=== PATIENT | female | born 1950 | race Caucasian/White ===

== ENCOUNTER 2016-02-19 17:55 | Inpatient (IN) | payer OTHER, MEDICAID ==
[2016-02-19] MEDS ORDERED: NS 1,000 ML IV ONE ×2 (18:10→18:23)
--- NOTE | 2016-02-19 18:13 | EDPHY ---
H & P Time Seen by Provider: 02/19/16 18:07 HPI/ROS: Chief complaint. Shortness of breath HPI. 65-year-old female presents emergency department with altered mental status, shortness of breath, fast heart rate for the last 2-3 days. She has fever to 104 degrees. She has a productive cough. She has generalized weakness. Denies pain in her chest. No vomiting or diarrhea. No rash. No urinary symptoms. She is about to start chemotherapy for newly diagnosed stage IV breast cancer. She recently has had a right chest port placed ROS Constitutional. Fever and weakness Eyes. no problems with vision ENT. no sore throat, no nasal drainage Cardiovascular. Fast heart rate Respiratory. Short of breath and cough Abdominal. no abdominal pain, no nausea/vomiting, no diarrhea . no problems urinating MS. no calf pain/swelling, no neck/back pain, no joint pain Skin. no rash Lymph. no swollen glands Neuro. Unable to walk secondary to weakness Past Medical/Surgical History: Stage IV left breast cancer Social History: Single, lives alone, nonsmoker, no alcohol Physical Exam: General Appearance: Alert well-developed female moderate distress vital signs show temp 37.9degrees, heart rate 141, initial blood pressure 80/59 Eyes: Pupils equal and round no pallor or injection. ENT, Mouth: Mucous membranes are moist. Respiratory: No retractions. Decreased breath sounds on right. Some rhonchi on the left Cardiovascular: Regular rate and rhythm with tachycardia Gastrointestinal: Abdomen is soft and nontender, no masses, bowel sounds normal. Neurological: Awake and alert, sensory and motor exams grossly normal. Skin: Warm and dry, no rashes. Musculoskeletal: Neck is supple nontender. Extremities symmetrical, full range of motion. Psychiatric: Patient is oriented X 3, there is no agitation. Constitutional: Initial Vital Signs Temperature (C) 37.9 C 02/19/16 18:11 Heart Rate 141 H 02/19/16 18:11 Respiratory Rate 20 02/19/16 18:11 Blood Pressure 80/59 L 02/19/16 18:11 O2 Sat (%) 99 02/19/16 18:11 O2 Delivery Mode Nasal Cannula O2 (L/minute) 3 Allergies/Adverse Reactions: No Known Allergies Allergy (Unverified 02/19/16 18:08) Home Medications: Medication Instructions Recorded Keflex 02/19/16 Klor-Con 02/19/16 Lasix 02/19/16 morphINE 02/19/16 Medical Decision Making - Diagnostics EKG Interpretation: EKG interpreted by me shows sinus tachycardia with decreased voltage. QRS is otherwise normal. No arrhythmia. Rate is 144 Imaging: One-view chest x-ray interpreted by me shows right-sided pleural effusion. Cannot exclude pneumonia CT angiogram of the chest shows bilateral low volume pulmonary emboli. There is also pneumonia. There is evidence of CHF. She has bilateral pleural effusions Procedures: IV normal saline, monitor. 2 L of saline given initially. Sepsis workup is performed ED Course/Re-evaluation: Lactate is elevated. Patient is given IV antibiotics as well as 30 male per kg fluid bolus 6:45 p.m. patient is for blood pressure is about 93/60 Levaquin is ordered after blood cultures. Re-evaluation 7:10 p.m. in the patient's blood pressure is 100/[address] pulmonary angiogram is ordered Consult and discussion with , hospitalist, who agrees to the admission Differential Diagnosis: I considered pneumonia, PE, sepsis. - Data Points Laboratory Results: Laboratory Results 02/19/16 18:05 02/19/16 18:05 02/19/16 02/19/16 02/19/16 18:20 18:12 18:05 WBC 8.92 10^3/uL (3.80-9.50) RBC TNP Hgb 8.8 L g/dL (12.6-16.3) Hct 31.0 L % (35.5-47.5) MCV TNP MCH TNP MCHC TNP RDW TNP Plt Count 541 H 10^3/uL (150-400) MPV 8.9 fL (8.7-11.7) Neut % (Auto) 84.2 H % (39.3-74.2) Lymph % (Auto) 9.9 L % (15.0-45.0) [place] % (Auto) 4.5 % (4.5-13.0) Eos % (Auto) 0.2 L % (0.6-7.6) Baso % (Auto) 0.9 % (0.3-1.7) Nucleat RBC Rel Count 0.0 % (0.0-0.2) Absolute Neuts (auto) 7.51 H 10^3/uL (1.70-6.50) Absolute Lymphs (auto) 0.88 L 10^3/uL (1.00-3.00) Absolute Monos (auto) 0.40 10^3/uL (0.30-0.80) Absolute Eos (auto) 0.02 L 10^3/uL (0.03-0.40) Absolute Basos (auto) 0.08 10^3/uL (0.02-0.10) Absolute Nucleated RBC 0.00 10^3/uL (0-0.01) Immature Gran % 0.3 % (0.0-1.1) Immature Gran # 0.03 10^3/uL (0.00-0.10) Platelet Estimate INCREASED H (ADEQ) Polychromasia 1+ H Hypochromasia 2+ H Microcytic Cells 2+ H Smear Review By Pending PT 21.6 H SEC (12.0-15.0) INR 1.87 H (0.83-1.16) APTT 29.9 SEC (23.0-38.0) VBG Lactic Acid 2.8 H mmol/L (0.7-2.1) Sodium 135 mEq/L (134-144) Potassium 5.2 mEq/L (3.5-5.2) Chloride 103 mEq/L (97-110) Carbon Dioxide 21 L mEq/l (22-31) Anion Gap 11 mEq/L (8-16) BUN 16 mg/dL (7-23) Creatinine 0.6 mg/dL (0.6-1.0) Estimated GFR > 60 Glucose 116 H mg/dL (70-100) Calcium 8.3 L mg/dL (8.5-10.4) Total Bilirubin 0.4 mg/dL (0.1-1.4) Medications Given: Discontinued Medications Sodium Chloride (Ns) 1,000 mls @ 0 mls/hr IV ONCE ONE PRN Reason: Wide Open Stop: 02/19/16 18:11 Last Admin: 02/19/16 18:05 Dose: 1,000 mls Sodium Chloride (Ns) 1,000 mls @ 0 mls/hr IV ONCE ONE PRN Reason: Wide Open Stop: 02/19/16 18:24 Last Admin: 01/06/17 18:40 Dose: 1,000 mls Sodium Chloride (Ns *For Sepsis Order Set Only*) 1,592 ml IV ONCE ONE Stop: 02/19/16 18:51 Last Admin: 02/19/16 19:01 Dose: 1,592 ml Departure - Departure Disposition: [facility] Inpatient Acute Clinical Impression: Elevated lactate Pneumonia Qualifiers: Pneumonia type: due to unspecified organism Laterality: bilateral Lung location : lower lobe of lung Qualifier Code: (J18.9) Pneumonia, unspecified organism Pulmonary embolus Qualifiers: Pulmonary embolism type: other Chronicity: acute Condition: Fair
[2016-02-19 18:20] LABS: % IMMATURE GRANULYOCYTES 0.3 % (0.0-1.1); ABSOLUTE IMMATURE GRANULOCYTES 0.03 10^3/uL (0.00-0.10); ADD DIFF? NO; ADD SCAN? NO; ATYPICAL LYMPHOCYTE FLAG 10 (0-99); HEMOGLOBIN 8.8 g/dL (12.6-16.3); LEFT SHIFT FLG 10 (0-99); LIPEMIA HEMOLYSIS FLAG 70 (0-99); MEAN PLATELET VOLUME 8.9 fL (8.7-11.7); PLATELET CLUMPS FLAG 10 (0-99); PLATELET COUNT 541 10^3/uL (150-400)
--- NOTE | 2016-02-19 18:30 | CPEKG ---
Heart Rate: 144 RR Interval: 417 QRSD Interval: 38 QT Interval: 219 QTC Interval: 339 QRS [place]: 46 T Wave [place]: 156 EKG Severity - ABNORMAL ECG - EKG Impression: JUNCTIONAL TACHYCARDIA EKG Impression: LOW VOLTAGE THROUGHOUT EKG Impression: NONSPECIFIC T ABNORMALITIES, DIFFUSE LEADS Electronically Signed By: Lv Roe 19-Feb-2016 20:37:54
[2016-02-19 18:31] LABS: ANION GAP 11 mEq/L (8-16); CALCIUM 8.3 mg/dL (8.5-10.4); CARBON DIOXIDE 21 mEq/l (22-31); CHLORIDE 103 mEq/L (97-110); CREATININE 0.6 mg/dL (0.6-1.0); GLOMERULAR FILTRATION RATE > 60; GLUCOSE 116 mg/dL (70-100); POTASSIUM 5.2 mEq/L (3.5-5.2); SODIUM 135 mEq/L (134-144)
[2016-02-19 18:40] LABS: BILIRUBIN,TOTAL 0.4 mg/dL (0.1-1.4)
[2016-02-19 18:42] LABS: APTT 29.9 SEC (23.0-38.0); INR 1.87 (0.83-1.16); PROTIME(PATIENT) 21.6 SEC (12.0-15.0)
[2016-02-19] MEDS ORDERED: NS 1,000 ML BAG *FOR SEPSIS ORDER SET ONLY IV ONE (18:50)
--- NOTE | 2016-02-19 18:57 | DX ---
Portable AP Semiupright Chest, 2 Views, at 6:33 p.m. Clinical History: 65-year-old female in the ED with chest pain. Comparison Study: None available. Findings: The patient is rotated to the right. There is a right-sided central venous catheter, which terminates over the central right atrium. Oxygen tubing and telemetry monitoring lead lines are prese nt. The cardiac silhouette may be enlarged, although it is silhouetted by macrolobulated density over lying the left hemidiaphragm, and there is right basilar pleural-parenchymal consolidation. The pulmo nary vasculature is congested with some mild interstitial edema present. There is no pneumothorax. Impression: 1. Rightward rotational change. 2. Bibasilar pleuroparenchymal consolidation with suspected cardiomegaly and congestive heart failure . 3. There is a macrolobulated "opacity" which resides over the left upper quadrant of the abdomen and over the left lung base, of uncertain etiology. Correlation with prior studies would be helpful.
[2016-02-19 19:03] LABS: ADD MORPH? YES
[2016-02-19] MEDS ORDERED: IOPAMIDOL (ISOVUE 370) 100 ML BTL IV ONE (19:17)
[2016-02-19 19:21] LABS: HYPOCHROMIA 2+; MICROCYTES 2+; PLATELET ESTIMATE INCREASED (ADEQ)
[2016-02-19 19:22] LABS: POLYCHROMASIA 1+
[2016-02-19] MEDS ORDERED: ENOXAPARIN 60 MG/0.6 ML SYR SC ONE (20:21)
--- NOTE | 2016-02-19 20:28 | CT ---
Contrast-Enhanced CT Scan of the Chest (CT Pulmonary Artery Angiography) Clinical History: 65-year-old female with stage IV breast cancer and shortness of breath. Rule out PE . Technique: A timing bolus was used. The patient received 85 mL of IV Isovue-370 without complication, and a multidetector helical CT scan was obtained from the base the neck inferiorly to the upper abdo men, with images reformatted at 1.50 and 4/3 mm increments, and reviewed at a variety of window and l evel settings. Multiplanar reconstructions are reviewed on the workstation. The DFOV is 32.2 cm. A do se reduction protocol was used. The patient was unable to lie supine or raise her arms, and she is ro tated to the right. Comparison Study: Chest radiography at 6:33 p.m. Other cross-sectional imaging is not available [email or web address]. Findings: CT Angiography: The main pulmonary artery and the main right and the main left pulmonary arteries are contrast-opacified; however, there is a small filling defect identified in the proximal portion of t he branch seen to the posteromedial right lower lobe (please reference series 5, images 93-98), and s mall-volume clot seen within the proximal branches of the right middle lobe pulmonary artery (series 5, images 95-96). There is also small-volume clot involving the distal portion of the left main pulmo nary artery at the first bifurcation (please reference coronal series 8, images 57-60, and axial seri es 5, images 76-80). There is no interventricular septal bowing, although there is a small amount of reflux into the (IVC) cavoatrial junction. The heart is enlarged. There is minimal atherosclerotic ca lcification involving the distal left main and left anterior descending coronary arteries. The thorac ic aortic contour is normal, with no aneurysm or dissection. There is a normal anatomic arrangement o f the great vessels off of the aortic arch. There is a right IJ central venous catheter MediPort whic h terminates in the proximal right atrium. The visualized upper abdominal aorta is unremarkable. Contrast-Enhanced CT Scan of the Chest: There is a macrolobulated, fungating exophytic left breast ne oplasm with metastatic lymphadenopathy. A sentinel left axillary lymph node on series 5 image 88 branden ures 2.0 x 1.9 cm, and there is a 1.5 x 1.1 cm right axillary lymph node on series 5 image 83. There is a heterogeneously enhancing subcarinal lymph node measuring 4.5 x 3.1 cm, and a 2.2 x 1.6 cm lymp h node anterior to the right mainstem bronchus. There is a 1.2 x 1.5 cm left supraclavicular lymph no de. There is a subcentimeter left internal mammary lymph node on series 5, image 84. There is anasarc a present. There is very limited assessment of the upper abdomen with only the cephalad aspects of th e liver and spleen included, and there are moderate-sized bilateral pleural effusions with diffuse pe ribronchial thickening and peripheral paraseptal lines, suggestive of congestive heart failure. There are some small areas of ground-glass attenuation pneumonitis in the anterior right upper lobe, and t here is compressive atelectasis versus infiltrate in the right and left lower lobes and also some loc alized airspace disease in the inferior lingula. These latter findings could be related to alveolar e alexander and/or multicentric pneumonia. There is no thoracic osseous or lytic abnormality. There is a mil d superior cortical endplate compression deformity seen on series 9, image 65. The glenohumeral joint s are anatomically aligned. There is no sternal lesion or rib lesion appreciated. Impression: 1. Small-volume bilateral pulmonary artery thromboemboli. 2. Cardiomegaly with pulmonary vascular congestion, peripheral interstitial edema and alveolar edema, and moderate-sized bilateral pleural effusions. 3. Areas of ground-glass attenuation and infiltrate could be related to pneumonia and/or alveolar nick ma. 4. Exophytic fungating mass emanating off of the left breast with anasarca and multicentric adenopath y with involvement of axillary, supraclavicular, internal mammary, superior mediastinal, and subcarin al lymph node stations. Results were called to Dr. Lv Roe. A test result has been communicated to a licensed care provider and documented in [employer], 8:14:15 PM , 02/19/2016, [employer] Message ID [id number].
[2016-02-19] MEDS ORDERED: ACETAMINOPHEN 500 MG TAB PO ONE (20:32)
[2016-02-19] MEDS ORDERED: ACETAMINOPHEN 500 MG TAB ONE (20:33)
[2016-02-19 20:40] LABS: ALBUMIN 2.2 g/dL (3.5-5.0); BILIRUBIN,TOTAL 0.4 mg/dL (0.1-1.4); BILIRUBIN-CONJUGATED 0.3 mg/dL (0.0-0.5); BILIRUBIN-UNCONJUGATED 0.1 mg/dL (0.0-1.1); TOTAL PROTEIN 4.8 g/dL (6.3-8.2)
[2016-02-19] MEDS ORDERED: NOREPINEPHRINE BITARTRATE 4 MG in D5W 500 ML IV ONE (21:12)
[2016-02-19] MEDS ORDERED: ONDANSETRON DISINTEGRATING 4 MG TAB PO PRN (22:13)
[2016-02-19] MEDS ORDERED: ONDANSETRON 4 MG/2 ML VIAL IVP PRN (22:13)
[2016-02-19 22:55] LABS: TROPONIN I 0.067 ng/mL (0-0.034)
--- NOTE | 2016-02-20 00:06 | PDGENHP ---
History and Physical - Chief Complaint Acute encephalopathy - History of Present Illness PCP: None HPI: 65-year-old female presents with acute encephalopathy characterized as confusion, altered mentation with associated nonproductive cough, shortness of breath, generalized weakness, documented fever of 104, with onset of symptoms approximately 2-3 days ago and progression thereafter. Patient was hospitalized at [facility] [place] for approximately 10 days where she was evaluated for new fungating mass on her left breast secondary to stage IV breast cancer and she was initiated on antibiotics at that time she was discharged to [facility] on oral Keflex as well as Eliquis, presumably for pulmonary embolism. She reports that she had been engaging in therapy at [facility], and that she has no recollection of the events on the date of this presentation, outside of the symptoms mentioned above. On presentation, her venous lactic acid was 2.8, her systolic blood pressure was in the 80s, septic shock protocol was initiated and she was administered Levophed, IV fluids, levofloxacin. History Information - Allergies/Home Medication List Allergies/Adverse Reactions: No Known Allergies Allergy (Unverified 02/19/16 18:08) Home Medications: Apixaban [Eliquis] 5 mg PO BID 02/19/16 [Last Taken 02/19/16 08:00] Cephalexin [Keflex (*)] 250 mg PO TID 02/19/16 [Last Taken 02/19/16 12:00] Furosemide [Lasix 20 MG (*)] 20 mg PO DAILY 02/19/16 [Last Taken 02/19/16] Potassium Cl [Klor-Con] 10 meq PO DAILY 02/19/16 [Last Taken 02/19/16] morphINE [Roxanol 10 mg/0.5 ml oral soln (*)] 5 mg PO Q3 PRN 02/19/16 [Last Taken 02/19/16 12:00] I have personally reviewed and updated: family history, medical history, social history, surgical history - Past Medical History Additional medical history: Stage IV breast cancer with left-sided fungating mass, intention to treat with chemotherapy through provider at [facility] [place], presumably pulmonary embolism given that she is on Eliquis - Surgical History Additional surgical history: Right port placement - Family History Additional family history: Patient does not report any recent sick family contacts or other family medical history - Social History Smoking Status: Never smoked Alcohol Use: None Drug Use: None Additional social history: Currently requiring assistance with ADLs at [facility], lives in [place], did not have medical care prior to her presentation at [facility] [place] Review of Systems ROS: 10pt was reviewed & negative except for what was stated in HPI & below Constitutional: Reports: fever, weakness Respiratory: Reports: cough, shortness of breath Neurological: Reports: other (Confusion, the poor memory) Physical Exam Temp Pulse Resp BP Pulse Ox 37.4 C 97 24 H 91/57 L 98 02/19/16 21:20 02/19/16 23:45 02/19/16 23:00 02/19/16 23:45 02/19/16 23:45 O2 (L/minute) 2 Constitutional: no apparent distress, not in pain, chronically ill appearing, cachectic Eyes: PERRL, anicteric sclera, EOMI Ears, Nose, Mouth, Throat: moist mucous membranes, hearing normal, ears appear normal, no oral mucosal ulcers Cardiovascular: tachycardia, edema (1+ bilateral lower extremity edema extending all the way up to her abdomen), No systolic murmur, No irregularly irregular Respiratory: rhonchi (Bilaterally on inspiration and expiration), No expiratory wheeze, No bronchial breath sounds Gastrointestinal: normoactive bowel sounds, soft, non-tender abdomen, no palpable masses, other (Soft tissue edema) Skin: other (Soft tissue edema on the abdomen and legs, streaking erythema bilateral lower extremities, large fungating mass on the left chest with minimal surrounding erythema at the base, no erythema around the port site) Neurologic: AAOx3, sensation intact bilaterally, weakness (Motor strength 3/5 bilateral lower extremities secondary to the weight of her legs, motor strength 5/5 bilateral upper extremity) Psychiatric: interacting appropriately, not anxious, not encephalopathic, thought process linear Lab Data & Imaging Review 02/19/16 18:05 02/19/16 18:05 WBC 8.92 10^3/uL (3.80-9.50) 02/19/16 18:05 RBC TNP 02/19/16 18:05 Hgb 8.8 g/dL (12.6-16.3) L 02/19/16 18:05 Hct 31.0 % (35.5-47.5) L 02/19/16 18:05 MCV TNP 02/19/16 18:05 MCH TNP 02/19/16 18:05 MCHC TNP 02/19/16 18:05 RDW TNP 02/19/16 18:05 Plt Count 541 10^3/uL (150-400) H 02/19/16 18:05 MPV 8.9 fL (8.7-11.7) 02/19/16 18:05 Neut % (Auto) 84.2 % (39.3-74.2) H 02/19/16 18:05 Lymph % (Auto) 9.9 % (15.0-45.0) L 02/19/16 18:05 [place] % (Auto) 4.5 % (4.5-13.0) 02/19/16 18:05 Eos % (Auto) 0.2 % (0.6-7.6) L 02/19/16 18:05 Baso % (Auto) 0.9 % (0.3-1.7) 02/19/16 18:05 Nucleat RBC Rel Count 0.0 % (0.0-0.2) 02/19/16 18:05 Absolute Neuts (auto) 7.51 10^3/uL (1.70-6.50) H 02/19/16 18:05 Absolute Lymphs (auto) 0.88 10^3/uL (1.00-3.00) L 02/19/16 18:05 Absolute Monos (auto) 0.40 10^3/uL (0.30-0.80) 02/19/16 18:05 Absolute Eos (auto) 0.02 10^3/uL (0.03-0.40) L 02/19/16 18:05 Absolute Basos (auto) 0.08 10^3/uL (0.02-0.10) 02/19/16 18:05 Absolute Nucleated RBC 0.00 10^3/uL (0-0.01) 02/19/16 18:05 Immature Gran % 0.3 % (0.0-1.1) 02/19/16 18:05 Immature Gran # 0.03 10^3/uL (0.00-0.10) 02/19/16 18:05 Platelet Estimate INCREASED (ADEQ) H 02/19/16 18:05 Polychromasia 1+ H 02/19/16 18:05 Hypochromasia 2+ H 02/19/16 18:05 Microcytic Cells 2+ H 02/19/16 18:05 PT 21.6 SEC (12.0-15.0) H 02/19/16 18:20 INR 1.87 (0.83-1.16) H 02/19/16 18:20 APTT 29.9 SEC (23.0-38.0) 02/19/16 18:20 VBG Lactic Acid 1.8 mmol/L (0.7-2.1) 02/19/16 20:20 Sodium 135 mEq/L (134-144) 02/19/16 18:05 Potassium 5.2 mEq/L (3.5-5.2) 02/19/16 18:05 Chloride 103 mEq/L (97-110) 02/19/16 18:05 Carbon Dioxide 21 mEq/l (22-31) L 02/19/16 18:05 Anion Gap 11 mEq/L (8-16) 02/19/16 18:05 BUN 16 mg/dL (7-23) 02/19/16 18:05 Creatinine 0.6 mg/dL (0.6-1.0) 02/19/16 18:05 Estimated GFR > 60 02/19/16 18:05 Glucose 116 mg/dL (70-100) H 02/19/16 18:05 Calcium 8.3 mg/dL (8.5-10.4) L 02/19/16 18:05 Total Bilirubin 0.4 mg/dL (0.1-1.4) 02/19/16 18:05 Conjugated Bilirubin 0.3 mg/dL (0.0-0.5) 02/19/16 18:05 Unconjugated Bilirubin 0.1 mg/dL (0.0-1.1) 02/19/16 18:05 AST 35 IU/L (14-46) 02/19/16 18:05 ALT 27 IU/L (9-52) 02/19/16 18:05 Alkaline Phosphatase 136 IU/L (38-126) H 02/19/16 18:05 Troponin I 0.067 ng/mL (0-0.034) H 02/19/16 18:05 Total Protein 4.8 g/dL (6.3-8.2) L 02/19/16 18:05 Albumin 2.2 g/dL (3.5-5.0) L 02/19/16 18:05 Visualized and Interpreted imaging results: Yes Interpretation: CT angiogram of the chest demonstrates emboli bilaterally, moderate size effusions bilaterally on the right side in the right upper lobe left-sided left lower lobe, ground-glass opacities the proximal to these effusions, lymphadenopathy with left-sided fungating mass Visualized and Interpreted EKG results: Yes EKG Interpretation: Positive for: other (Sinus tachycardia with low voltage diffusely throughout) Assessment & Plan Assessment: 65-year-old female presents with septic shock secondary to suspected pneumonia in the setting of stage IV breast cancer Plan: 1. Septic shock. Acute, new problem this provider, further workup indicated. Evidenced by fever plus tachycardia plus tachypnea plus clearly identified source of infection notably pneumonia plus evidence of end-organ failure notably lactic acidosis, myocardial ischemia with hypotension and systolic blood pressures in the 70-80 range requiring pressors, although this is secondary to autonomic dysregulation in the setting of infection -continue Levophed -status post weight based IV fluids -give albumin given her serum albumin level is 2.2 and she appears to have malignancy related malnutrition and cachexia -brought in IV antibiotics to include possible skin organisms given her underlying fungating mass as well as possible postobstructive pneumonia -repeat arterial lactic acid level, mixed ScV O2 -get stat echo given diffuse low voltage on EKG and shock physiology, rule out tamponade 2. Pneumonia. Evidenced by bilateral ground-glass opacities, possibly postobstructive in the setting of metastatic breast cancer -will have pulmonary Critical Care review CT tomorrow to assess whether it is felt like the pneumonia is postobstructive versus healthcare associated -possible organisms include MRSA, Pseudomonas, Gram-negative rods given her recent 10 day hospitalization at [facility] [place] -broadened antibiotics to vancomycin and Zosyn -continue on supplemental oxygen 3. Stage IV breast cancer. Visible bilateral lymphadenopathy as well as fungating mass on left breast -patient has follow-up with oncologist at [facility] who appears to be planning palliative chemotherapy with recent port placement, they did not recommend surgery to her -get wound care involvement for fungating mass 4. Pulmonary emboli. Acute, suspect recent diagnosis at [facility] given that she is currently on Eliquis -discussed with Dr. Dela Cruz, she has signed out this patient to me at the end of her shift, she was reported to me that the emergency department has given Lovenox this evening -continue Eliquis tomorrow morning at 10 mg twice daily order outside records from [facility] to determine whether patient has already received the initial loading dose of 10 mg twice daily x7 days, and if so, will reduce dosage to 5 mg twice daily 5. Metabolic acidosis. Acute, secondary to lactic acid, continue IV fluids and repeat arterial lactic acid level Diet. Regular Prophylaxis. High risk, received Lovenox, continue on loading dose of Eliquis Code. Full per patient, Elizabeth Mac is her MPOA Disposition. Anticipated discharge uncertain this time, anticipated length stay is greater than 48 hours warranting inpatient admission status for acute septic shock requiring ICU level care. The patient remains high risk of worsening morbidity and/or mortality, she is critically ill, spent 40 minutes of critical care time at bedside with patient, addressing the issues outlined above.
[2016-02-20 00:27] LABS: BASE EXCESS -4.2 mEq/L (-2.5-2.5); BICARBONATE 19 mEq/L (22-26); MEASURED OXYGEN SATURATION 98 % (92-95); PCO2 30 mmHg (34-38); PO2 94 mmHg (65-75); TCO2 20 mEq/L (23-27)
[2016-02-20] MEDS: VANCOMYCIN 750 MG in D5W 150 ML IV SCH ×2 (00:42→14:06)
[2016-02-20] MEDS: PIPERACILLIN/TAZO 4.5 GM/DEX 100 ML IV SCH ×4 (00:43→18:04)
[2016-02-20] MEDS: NOREPINEPHRINE BITARTRATE 4 MG in D5W 500 ML IV SCH (02:16)
[2016-02-20] MEDS: NS 1,000 ML IV SCH ×2 (02:17→08:51)
[2016-02-20] MEDS ORDERED: ALBUMIN 25% 100 ML SOLN IV ONE ×2 (02:25→13:04)
[2016-02-20 03:55] LABS: % IMMATURE GRANULYOCYTES 0.4 % (0.0-1.1); ABSOLUTE IMMATURE GRANULOCYTES 0.02 10^3/uL (0.00-0.10); ADD DIFF? NO; ADD SCAN? NO; ATYPICAL LYMPHOCYTE FLAG 40 (0-99); HEMATOCRIT 26.2 % (38.0-47.0); HEMOGLOBIN 7.5 g/dL (12.6-16.3); LEFT SHIFT FLG 0 (0-99); LIPEMIA HEMOLYSIS FLAG 70 (0-99); MEAN CELL HEMOGLOBIN 25.5 pg (27.9-34.1); MEAN CELL VOLUME 89.1 fL (81.5-99.8); MEAN PLATELET VOLUME 8.6 fL (8.7-11.7); PLATELET CLUMPS FLAG 10 (0-99); PLATELET COUNT 372 10^3/uL (150-400); RED BLOOD CELL COUNT 2.94 10^6/uL (4.18-5.33)
[2016-02-20 04:01] LABS: MIXED VENOUS O2 SATURATION 60 % (65-75)
[2016-02-20 04:08] LABS: ALANINE AMINOTRANSFERASE 33 IU/L (9-52); ALBUMIN 2.2 g/dL (3.5-5.0); ALKALINE PHOSPHATASE 115 IU/L (38-126); ANION GAP 8 mEq/L (8-16); ASPARTATE AMINOTRANSFERASE 27 IU/L (14-46); BILIRUBIN,TOTAL 0.4 mg/dL (0.1-1.4); CARBON DIOXIDE 22 mEq/l (22-31); CHLORIDE 108 mEq/L (97-110); CREATININE 0.5 mg/dL (0.6-1.0); GLOMERULAR FILTRATION RATE > 60; GLUCOSE 125 mg/dL (70-100); SODIUM 138 mEq/L (134-144); TOTAL PROTEIN 4.5 g/dL (6.3-8.2)
[2016-02-20 04:19] LABS: TROPONIN I 0.046 ng/mL (0-0.034)
[2016-02-20 04:25] LABS: MEAN CELL HEMOGLOBIN CONCENTR. 28.6 g/dL (32.4-36.7)
[2016-02-20 04:26] LABS: ADD MORPH? YES
[2016-02-20 05:21] LABS: HYPOCHROMIA 2+; LARGE PLATELETS PRESENT; MACROCYTES 1+; MICROCYTES 2+; PLATELET ESTIMATE ADEQUATE (ADEQ); POLYCHROMASIA 2+
[2016-02-20 06:19] LABS: COLOR YELLOW; LEUKOCYTE ESTERASE,URINE NEGATIVE (NEGATIVE); NITRITE,URINE NEGATIVE (NEGATIVE)
[2016-02-20 07:38] LABS: MIXED VENOUS O2 SATURATION 83 % (65-75)
[2016-02-20] MEDS ORDERED: APIXABAN 5 MG TAB PO SCH (09:00)
[2016-02-20] MEDS ORDERED: FUROSEMIDE 20 MG/2 ML VIAL ONE (10:37)
[2016-02-20] MEDS ORDERED: FUROSEMIDE 20 MG/2 ML VIAL IVP ONE (11:00)
--- NOTE | 2016-02-20 11:33 | ECHO ---
[id number] + + [address] : : [place] [address] : : [phone] + + Adult Echocardiographic Report + -----+ :Name: Aida DUBOIS Date: 02/20/2016 08:38 AM BP: 94/70 mmHg : : Hospital Admission Number: [id number] Location : 248: :: 1950 Gender: Female Height: 64 in : :Age: 65 yrs Race: WH Weight: 117 lb : :Reason For Study: eval for pericardial effusion, RV strain, : :and reduced EF BSA: 1.6 meters2 : :History: Large left breast tumor; septic shock : + -----+ MMode/2D Measurements & Calculations IVSd: 0.65 cm RVDd: 3.5 cm FS: 14.5 % Ao root diam: 2.7 cm LVPWd: 0.83 cm LVIDd: 5.1 cm EDV(Teich): 122.7 ml LA dimension: 3.8 cm LVIDs: 4.3 cm ESV(Teich): 85.0 ml EF(Teich): 30.7 % Normal Measurement Values: + + :LVIDd (3.5-5.7cm) IVSd (0.6-1.1cm) LVPWd (0.6-1.1cm) Aortic Root (2.0-3.7cm)Left Atrium (1.5-4.0cm): :LV Vol(d) (76-115ml) LV Vol(s) (29-48ml) Ejec Fraction (50-65%)PV Pasha (0.6- 1.2m/s) TV Pasha (0.4-1.0m/s) : :MV E Pasha (0.8-1.0m/s)MV A Pasha (0.3-1.0m/s)LVOT Pasha (0.7-1.2m/s) Asc Ao Pasha ( 0.9-1.8m/s) : + + Doppler Measurements & Calculations PA V2 max: 57.4 cm/sec TR max pasha: 255.2 cm/sec PA max P.3 mmHg TR max P.0 mmHg RAP systole: 15.0 mmHg RVSP(TR): 41.0 mmHg Left Ventricle The left ventricle is borderline dilated. There is normal left ventricular wall thickness. Left ventricular systolic function is moderate to severely reduced. Diastolic Function Indeterminate due to due to no apical window.. Ejection Fraction = 30-35%. Flattened interventricular septum with hypokinesis due to RV strain and/or coronary artery disease. Right Ventricle RV is only visualized in limited views. RV appears to be normal size with mildly reduced systolic function. Atria The left atrial size is normal. Right atrial size is normal. Mitral Valve The mitral valve leaflets appear thickened, but open well. Mitral regurgitation evaluated only in parasternal views; there is moderate to severe MR in theses views. Tricuspid Valve The tricuspid valve is normal in structure and function. There is no tricuspid stenosis. There is moderate to severe tricuspid regurgitation. Right ventricular systolic pressure is 41mmHg. There is Doppler evidence for moderate pulmonary hypertension. Aortic Valve The aortic valve is trileaflet. There is no aortic stenosis. There is no aortic insufficiency. Pulmonic Valve The pulmonic valve is normal in structure and function. Trace pulmonic valvular regurgitation. Great Vessels The aortic root is not well visualized. Pericardium/Pleural trivial pericardial effusion. There is a large pleural effusion. Conclusion A two-dimensional transthoracic echocardiogram with M-mode and Doppler was performed. Techincally limited study due to lack of apical windoows related to presence of a large tumor. The left ventricle is borderline dilated. Left ventricular systolic function is moderately to severely reduced. Ejection Fraction = 30-35%. Flattened interventricular septum with hypokinesis due to RV strain and/or coronary artery disease. Diastolic Function Indeterminate due to due to no apical window. RV is only visualized in limited views. RV appears to be normal size with mildly reduced systolic function. Mitral regurgitation evaluated only in parasternal views; there is moderate to severe MR in theses views. There is moderate to severe tricuspid regurgitation. There is Doppler evidence for moderate pulmonary hypertension. Right ventricular systolic pressure is 41mmHg. Trace pulmonic valvular regurgitation. The aortic root is not well visualized. Trivial pericardial effusion. There is a large pleural effusion. Final Reading Physician: Chino Gannon signed on 02/20/2016 11:32 AM Ordering Physician: Tmiothy Zepeda Performed By: Cindy Lau
--- NOTE | 2016-02-20 11:39 | GCON ---
[f rep st] CONSULTATION REASON FOR ADMISSION: Respiratory failure. The patient is a 65-year-old white female with an extensive past medical history, including stage IV breast cancer with left-sided fungating mass. She was recently diagnosed at [facility] with a pulmonary embolus, for which she is on Eliquis. She presented to the emergency room with incr easing breathlessness as well as confusion. She had fevers up to 104. She currently resides at [facility] [place]. She was subsequently admitted to our intensive care unit. She is somewhat confused but abl e to answer questions. She admits to breathlessness and weakness, but she is not in any current pain . She was markedly hypertensive on presentation and septic shock protocol was instituted. Currently she is tachycardic, remains hypotensive, and is more breathless. PAST MEDICAL HISTORY: Significant for stage IV breast cancer, and a pulmonary embolism. She also ramírez s malnutrition. ALLERGIES: No allergies to medications. MEDICATIONS: Include Eliquis, Keflex, Lasix, Klor-Con, and Roxanol. PHYSICAL EXAM: VITAL SIGNS: Blood pressure is 86/60, pulse is 137, respirations are 28, temperature is 37.8, oxygen saturation is 90% on supplemental oxygen. GENERAL: She is a thin, cachectic, elder ly white female who is in mild respiratory distress. HEENT: Eyes are TAMMI, EOMI. Throat shows no e rythema nor tonsillar hypertrophy. NECK: Supple, there is no cervical adenopathy. HEART: Regular rate and rhythm, with a 2/6 systolic murmur at left sternal border without radiation. LUNGS: Dimini shed breath sounds, bibasilar crackles, right greater the left. ABDOMEN: Soft, nontender. Bowel so unds are present in all 4 quadrants. EXTREMITIES: No clubbing, cyanosis or edema. Her left breast has a large fungating mass. LABORATORIES: White count is 5.3, hemoglobin 7.5, hematocrit 26, platelet count is 372. Sodium is 1 38, potassium 4.0, chloride 108, CO2 of 22, BUN of 14, creatinine 0.5, glucose is 125. Troponin are weakly positive x2. Arterial blood gas, pH is 7.42, pCO2 of 30, pO2 of 94, bicarb 20, oxygen saturat ion is 98%. CT scan of the chest per PE protocol, shows small volume pulmonary emboli, cardiomegaly, infiltrate, and again this left breast fungating mass. RECOMMENDATIONS: 1. Agree with sepsis protocol. 2. IV antibiotics per ID. 3. DVT and PE prophylaxis. 4. Stress ulcer prophylaxis. 5. Agree with do not resuscitate. 6. Consider palliative care. 7. Consider comfort care. 8. Prognosis is grim. /[id number]/MODL
[2016-02-20] MEDS: morphINE 10 MG/0.5 ML UDSYR PO PRN ×4 (12:25→21:59)
--- NOTE | 2016-02-20 12:29 | CPEKG ---
Heart Rate: 143 RR Interval: 420 P-R Interval: 135 QRSD Interval: 60 QT Interval: 255 QTC Interval: 393 P [place]: 0 QRS [place]: 25 T Wave [place]: 67 EKG Severity - BORDERLINE ECG - EKG Impression: SINUS TACHYCARDIA EKG Impression: BORDERLINE T ABNORMALITIES, ANT-LAT LEADS Electronically Signed By: Vinay Swartz 21-Feb-2016 10:50:47
--- NOTE | 2016-02-20 12:31 | DX ---
Portable Chest, Single View February 20, 2016 at 10:47 a.m. Indication: Shortness of breath. Comparison: Portable chest dated February 19, 2016. Findings: Given differences in technique and degree of inspiration, bibasilar consolidation, worse ri ght than left, and bilateral pleural effusions, worse right than left have not significantly changed. The right anterior chest wall port, cardiomegaly, and left chest wall mass are unchanged. Impression: No significant change since one day prior.
[2016-02-20] MEDS ORDERED: ALBUMIN 25% 100 ML IV ONE (13:30)
--- NOTE | 2016-02-20 13:40 | GCON ---
[f rep st] CONSULTATION INFECTIOUS DISEASE CONSULTATION DATE OF CONSULTATION: 02/20/2016 REFERRING PHYSICIAN: Cammie Baez MD REASON FOR CONSULTATION: Left fungating breast cancer mass, for further evaluation and opinion. CHIEF COMPLAINT: Foul-smelling left breast mass. HISTORY OF PRESENTING ILLNESS: This is a 65-year-old, female, with a new diagnosis of stage IV breast cancer with a left-sided fungating mass, which on review of records, was GA positive, ER/HER2 negative, and is supposed to have some outpatient oncology followup. She also was placed on oral Keflex during her hospital stay, and apparently discharged on that for possible superinfection of the left fungating breast mass. She was discharged to [facility] and was brought in here yesterday after fevers and shaking chills. Blood cultures x2 sets were drawn and are pending. T-max here was 38.0, respiratory rate was 28, blood pressure was found 80/59, heart rate was 140. Her venous lactic acid was 2.8 and she is currently on Levophed. She had a CT angio, and found to have ground glass attenuation, possibly related to pneumonia or edema , bilateral pulmonary emboli. She was started empirically on vancomycin and Zosyn. She is tachypneic with speaking sentences. States that she has a cough that feels productive, but she is unable to bring up any phlegm. She denies any chest pain, abdominal pain, or diarrhea. Infectious Disease is now consulted for further evaluation and opinion regarding the above. REVIEW OF SYSTEMS: GENERAL: Denies any headaches. She had fevers and shaking chills on admission. EYES: No change in vision. ENT: No sore throat, difficulty swallowing, ear pain or drainage. CARDIOVASCULAR: Denies any chest pain or rapid heart beat. RESPIRATORY: Has some shortness of breath and a productive cough. GI: No nausea, vomiting, abdominal pain, or diarrhea. : No burning with urination. BACK: No back pain or flank pain. MUSCULOSKELETAL : Denies any joint pains or muscle aches. She does complain of lower extremity edema and upper extremity edema. SKIN: The fungating left breast mass which is foul smelling. Rest of 10-point review of systems essentially negative, except for above. PAST MEDICAL HISTORY: Significant for recent diagnosis of stage IV breast cancer with a left-sided fungating mass, bilateral pulmonary embolism. PAST SURGICAL HISTORY: Significant for recent right port placement. FAMILY HISTORY: No family history of cancer. SOCIAL HISTORY: She is a nonsmoker. Does not drink alcohol. She lives alone with her cat. FAMILY HISTORY: No history of cancer. ALLERGIES: No known drug allergies. MEDICATIONS: As per MAR. PHYSICAL EXAMINATION: VITAL SIGNS: Temperature current is 36.4, pulse is 119, blood pressure 102/69, respiratory rate is 30, saturation 100% on 3 L O2 via nasal cannula. GENERAL: The patient is resting in the intensive care unit. Tachypneic. Was speaking sentences. HEENT: Head is normocephalic, atraumatic. Pupils equal, round, reactive to light. No conjunctival injection or petechiae noted. Oropharynx is clear. No posterior pharyngeal erythema or thrush. CARDIOVASCULAR: S1, S2. Regular rhythm. She is tachycardic. RESPIRATORY: Coarse breath sounds bilaterally. Limited exam as she has poor inspiratory effort. ABDOMEN: Positive bowel sounds in 4 quadrants. Soft, nontender, nondistended. Organomegaly could not be well appreciated. EXTREMITIES: Bilateral lower extremity edema. MUSCULOSKELETAL: No pain on palpation of the joints. SKIN: Pertinent finding show large fungating left breast mass which is very foul smelling. There is minimal, if any, erythema surrounding it. The left breast fungating mass is quite soft and squishy in nature. LABORATORY DATA: White blood cell count 5.3, hemoglobin 7.5, platelets are 372 , neutrophil count of 73%. Coagulation: INR 1.8. Blood gas: Venous lactic acid was 2.8, is down to 1.8. Chemistry: Sodium 138, potassium 4.0, chloride 108, bicarb 22, BUN is 14, creatinine 0.5. LFTs from yesterday were within the normal range. Urinalysis is unremarkable. Blood cultures x2 sets are pending. Imaging results have all been reviewed by me and are stated above. ASSESSMENT: 1. Sepsis secondary to #1, #2 2. Healthcare associated pneumonia. CT scan shows bilateral ground-glass opacities, could be infiltrates related to pneumonia versus edema. Given her recent hospitalization at [facility] from February 05 to February 15, she may be at risk for healthcare-associated pneumonia. Again, I agree with broad- spectrum antimicrobials with vancomycin and Zosyn empirically for now. If she is able to cough up some phlegm, will check sputum for culture and sensitivity as well. Hematology/Oncology to see the patient. Wound Care to evaluate the patient as well. I thank you very much for allowing me this opportunity to care for your patient in consultation. 3. Stage IV left breast cancer with fungating mass, quite foul-smelling. Given the degree of foul-smelling nature to the left breast fungating mass, she may have some component of secondary superinfection. There is minimal, if any, surrounding cellulitic appearance to it. Blood cultures x2 are pending. I reviewed records from [facility]. Her blood cultures from [facility] on the and the 12 of February were no growth to date. She was previously on Keflex and discharged on that. I agree with empiric vancomycin and Zosyn for now. Will await cultures to better direct therapy. Would recommend a Wound Care consultation to further evaluate. We will continue to assess her antibiotic therapy. /[id number]/MODL MTDD
--- NOTE | 2016-02-20 13:50 | GHP ---
[f rep st] HISTORY AND PHYSICAL DATE OF ADMISSION: 02/19/2016 I was asked by Dr. Cammie Baez to evaluate this 65-year-old female with a locally ignored and metastatic breast carcinoma, who presents acutely ill to [facility]. To review, records are somewhat incomplete at this point in time, but my understanding is the patient was recently hospitalized at [facility] for evaluation of a fungating mass in her breast. She was treated with antibiotics and apparently had some imaging studies at that time, which also showed pulmonary emboli, and she was started on Eliquis. She was discharged to a assisted facility with the idea of starting chemotherapy when she was stronger, but she became acutely confused with altered mentation and presented to [facility] where she was found to be hypotensive, with an elevated venous lactate and systolic blood pressure in the 80s. She was treated with IV fluid resuscitation, pressors, and antibiotics. Currently, she is alert, but appears quite thin and quite pale. She tells me she has been losing weight, some of it because of weakness and inability to obtain food. She has noted the breast mass for over a year. To the best of her knowledge, her cancer is ER/MI negative. The HER-2 status is unclear. We are attempting to obtain records from [facility]. Her primary oncologist there is Dr. Irwin Zavala. PAST MEDICAL HISTORY: Otherwise unremarkable. She has had a recent right port placement. She is a nonsmoker. Prior to her presentation a few weeks ago, she has not had any medical care for quite some time. REVIEW OF SYSTEMS: She denies pain. She is quite weak. She has a cough. PHYSICAL EXAMINATION: VITAL SIGNS: Today, blood pressure 92/69, pulse 141, respiratory rate 30. O2 saturation 98% on 3 L. GENERAL: She is quite cachectic. LYMPHATIC: I detect no adenopathy. LUNGS: Diminished breath sounds. CARDIAC: She is tachycardic, with a regular rhythm. BREASTS: Left breast is replaced essentially by a fungating mass. ABDOMEN: Normal bowel sounds, without obvious organomegaly. LABORATORY DATA: Her chemistry panel shows unremarkable liver function tests. WBC is 5.31, hemoglobin 7.5, hematocrit 26.2, platelets 372,000. A CT scan on admission shows small volume pulmonary emboli, cardiomegaly with vascular congestion, peripheral interstitial edema and alveolar edema and moderate-sized bilateral pleural effusions. There are areas of ground-glass attenuation infiltrate related either to pneumonia or alveolar edema. There is an exophytic, fungating mass emanating off the left breast with anasarca and multicentric adenopathy with involvement of axillary, supraclavicular, internal mammary, superior mediastinal, and subcarinal lymph node stations. The subcarinal lymph node measures 4.5 x 3.1 cm. IMPRESSION: Patient with metastatic breast carcinoma. Current staging, although incomplete, would indicate significant mary disease and a locally advanced left breast cancer. It is unclear whether she has pulmonary metastasis. There is no obvious mention of liver metastasis or sclerotic bony metastasis on her imaging studies. She is quite ill. Potential sources of infection would include her lungs and/or left breast. She is being treated appropriately. I discussed her situation at length with the patient and with her consulting physicians. This is a very serious situation and she already has an incurable breast cancer. She has agreed to be DNR. I think the prognosis is quite tenuous, and she might best be served by palliative care, but this is a very recent diagnosis, and I think she is at least for now unprepared to consider that, as she was previously told that there was some hope for palliative chemotherapy in this setting. We will continue to follow with you and appreciate the opportunity to see this patient in consultation. /[id number]/MODL MTDD
[2016-02-20] MEDS: ACETAMINOPHEN 325 MG TAB PO PRN (15:06)
--- NOTE | 2016-02-20 17:19 | HOSPPROG ---
Hospitalist Progress Note Assessment/Plan: Septic shock secondary to b/l PNA with suspected malignant effusions vs skin source. Port looks clear - Cont Vanc/Zosyn, weaning Levophed. ID to consult. Left fungating breast cancer - stage IV by prior biopsy. Obtaining path, imaging, onc, surg reports from [facility]. -Oncology consult -poor prognosis, may need palliative care consult, pt not quite ready Anemia - hgb trending down to 7.5, transfuse if <7. Tachycardia - sinus tac by EKG. Query sepsis response. No PE on CTA. She has received volume resuscitation and prn Albumin Acute encephalopathy - likely secondary to sepsis presentation, now resolved. Severe protein calorie malnutrition - dietary consult. Code - discussed code status with patient today and she changed to DNR, order updated Dispo - cont ICU Subjective: Pt continues to feel short of breath. Still coughing. No fevers. denies pain. poor appetite. Objective: Vital Signs Temp Pulse Resp BP Pulse Ox 37.4 C 112 H 24 H 91/57 L 100 02/20/16 16:17 02/20/16 17:01 02/20/16 17:01 02/20/16 17:01 02/20/16 17:01 Laboratory Results 02/20/16 03:45 02/20/16 03:45 02/19/16 02/20/16 02/21/16 05:59 05:59 05:59 Intake Total 3124 Output Total 300 1100 Balance 2824 -1100 PT 21.6 SEC (12.0-15.0) H 02/19/16 18:20 INR 1.87 (0.83-1.16) H 02/19/16 18:20 - Physical Exam Constitutional: chronically ill appearing Eyes: PERRL Ears, Nose, Mouth, Throat: moist mucous membranes Cardiovascular: regular rate and rhythym Respiratory: reduced air movement, inspiratory crackles Gastrointestinal: normoactive bowel sounds, soft, non-tender abdomen Skin: other (pale) Neurologic: AAOx3 Psychiatric: interacting appropriately ICD10 Worksheet Patient Problems: Problems Problem Status Diagnosed Pneumonia Acute Pulmonary embolus Acute
[2016-02-20] MEDS: APIXABAN 5 MG TAB PO SCH (21:46)
[2016-02-20] MEDS ORDERED: ALBUMIN 25% 100 ML IV SCH (22:18)
[2016-02-21] MEDS: PIPERACILLIN/TAZO 4.5 GM/DEX 100 ML IV SCH ×5 (00:33→23:50)
[2016-02-21] MEDS: NOREPINEPHRINE BITARTRATE 4 MG in D5W 500 ML IV SCH ×3 (00:36→20:00)
[2016-02-21] MEDS: VANCOMYCIN 750 MG in D5W 150 ML IV SCH ×2 (00:45→14:07)
[2016-02-21] MEDS: morphINE 10 MG/0.5 ML UDSYR PO PRN ×7 (01:20→23:52)
[2016-02-21 05:10] LABS: ANION GAP 9 mEq/L (8-16); CALCIUM 8.2 mg/dL (8.5-10.4); CARBON DIOXIDE 20 mEq/l (22-31); CHLORIDE 105 mEq/L (97-110); CREATININE 0.5 mg/dL (0.6-1.0); GLOMERULAR FILTRATION RATE > 60; GLUCOSE 129 mg/dL (70-100); POTASSIUM 3.9 mEq/L (3.5-5.2); SODIUM 134 mEq/L (134-144)
[2016-02-21 06:24] LABS: % IMMATURE GRANULYOCYTES 0.6 % (0.0-1.1); ABSOLUTE IMMATURE GRANULOCYTES 0.04 10^3/uL (0.00-0.10); ABSOLUTE NRBC COUNT 0.02 10^3/uL (0-0.01); ADD DIFF? NO; HEMATOCRIT 24.6 % (38.0-47.0); HEMOGLOBIN 7.4 g/dL (12.6-16.3); MEAN CELL HEMOGLOBIN 25.7 pg (27.9-34.1); MEAN CELL HEMOGLOBIN CONCENTR. 30.1 g/dL (32.4-36.7); MEAN CELL VOLUME 85.4 fL (81.5-99.8); MEAN PLATELET VOLUME 8.6 fL (8.7-11.7); NRBC-AUTO% 0.3 % (0.0-0.2); PLATELET COUNT 390 10^3/uL (150-400); RED BLOOD CELL COUNT 2.88 10^6/uL (4.18-5.33)
[2016-02-21 06:41] LABS: ADD MORPH? YES
[2016-02-21 07:44] LABS: MACROCYTES 1+; MICROCYTES 2+
[2016-02-21 07:45] LABS: ELLIPTOCYTES 1+; HYPOCHROMIA 1+
[2016-02-21 07:46] LABS: KERATOCYTES 1+
[2016-02-21 07:47] LABS: GIANT PLATELETS PRESENT; LARGE PLATELETS PRESENT; PLATELET ESTIMATE ADEQUATE (ADEQ); POLYCHROMASIA 1+
--- NOTE | 2016-02-21 08:08 | PCMIDPN ---
Assessment/Plan: Assessment/Plan: 1. Sepsis 2. Bilateral pulm infiltrates: Possible HCAP -Currently on broad spectrum antibiotics with Vanco, zosyn. -Still requiring levophed. Still tachycardic. -Check Sputum if able 3. Stage IV left breast cancer with fungating mass: -Will do wound cx to help better direct antibiotic coverage. - Await blood cx--thus far pending -Continue vanco, zosyn. Current vanco trough done after only one dose. Will recheck. -Await wound care evaluation and assistance -care coordinated with Rn. Curran Vanco 750mg q12-02/20/16--- zosyn 4.5gm q6-02/20/16---- Subjective: Remains in icu. Bala fevers yesterday, intermittent low grade temps. Breathing easier today. Less tachypnea with speaking. Still remains tachycardic but less so. denies pain. Unable to cough up the phlegm although she has phlegm. Recieved lasix yesterday. LE still swollen bilaterally. Appetite overall down, but trying to eat. Dressing changes to left breast, about eery 3 hours at present. Still foul smelling. Remains on levophed. Objective: Vital Signs Temp Pulse Resp BP Pulse Ox 37.4 C 104 H 28 H 95/61 L 99 02/21/16 05:00 02/21/16 07:00 02/21/16 07:00 02/21/16 07:00 02/21/16 07:00 Laboratory Results 02/21/16 04:40 02/21/16 04:40 02/20/16 02/21/16 02/22/16 05:59 05:59 05:59 Intake Total 3124 2555 Output Total 300 1100 Balance 2824 1455 - Physical Exam General Appearance: alert, no apparent distress Respiratory: coarse breath sounds (mild bilaterally) Cardiac/Chest: tachycardia Extremities: swelling (bilateral LE edema, pitting. ) Abdomen: normal bowel sounds, non-tender, soft, No distended Skin: other (left breast fungating mass: with slough, weepy. no surrounding cellulitis. foul smelling. ) ICD10 Worksheet Patient Problems: Problems Problem Status Diagnosed Pneumonia Acute Pulmonary embolus Acute
[2016-02-21] MEDS ORDERED: ALTEPLASE 2 MG VIAL IVP PRN (08:50)
[2016-02-21] MEDS: APIXABAN 5 MG TAB PO SCH ×2 (09:31→20:00)
--- NOTE | 2016-02-21 11:41 | PDINTPN ---
Property Preservation Specialist Progress Note Assessment/Plan: Assessment/Plan: * Stage IV breast cancer with large fungating left breast mass * Sepsis-improved * Pneumonia-on vanco/Zosyn * PE-on Eliquis * Resp-stable on minimal O2 -wean as jose miguel * VTE proph * Nutrition-better appetite * Pain-tolerable * IV Access-currently using port -Place PICC Overall much better Subjective: Feels better. Breathing easier. Less cough. Better appetite Objective: Vital Signs Temp Pulse Resp BP Pulse Ox 36.7 C 121 H 25 H 105/66 100 02/21/16 08:00 02/21/16 11:00 02/21/16 11:00 02/21/16 11:00 02/21/16 11:00 Laboratory Results 02/21/16 04:40 02/21/16 04:40 02/20/16 02/21/16 02/22/16 05:59 05:59 05:59 Intake Total 3124 2555 Output Total 300 1100 Balance 2824 1455 PT 21.6 SEC (12.0-15.0) H 02/19/16 18:20 INR 1.87 (0.83-1.16) H 02/19/16 18:20 Physical Exam - Physical Exam General Appearance: alert, no apparent distress EENT: PERRL/EOMI, normal ENT inspection Neck: non-tender, full range of motion, supple, normal inspection Respiratory: crackles (few), No normal breath sounds, No respiratory distress, No stridor, No wheezing Cardiac/Chest: normal peripheral pulses, regular rate, rhythm, systolic murmur Peripheral Pulses: 2+: carotid (R), carotid (L), femoral (R), femoral (L), dorsalis-pedis (R), dorsalis-pedis (L) Abdomen: normal bowel sounds, non-tender, soft Pelvic Exam: deferred Rectal: deferred Skin: normal color, warm/dry Extremities: normal range of motion, non-tender, normal inspection, normal capillary refill Neuro/Psych: alert, normal mood/affect, oriented x 3 ICD10 Worksheet Patient Problems: Problems Problem Status Diagnosed Pneumonia Acute Pulmonary embolus Acute
--- NOTE | 2016-02-21 11:50 | SOAPPROG ---
SOAP Progress Note Assessment/Plan: Assessment: 1, Stage 4 breast cancer 2. sepsis 3. pna 4. general decline 5. PE She overall feels better, eating a bit Plan:Continue antibiotics, supportive care, trying to get records from [facility] 02/21/16 11:46 02/21/16 11:50 Subjective: Feels better, cough decreased Objective: Vital Signs Temp Pulse Resp BP Pulse Ox 98.1 F 121 H 25 H 105/66 100 02/21/16 08:00 02/21/16 11:00 02/21/16 11:00 02/21/16 11:00 02/21/16 11:00 Laboratory Results 02/21/16 04:40 02/21/16 04:40 02/20/16 02/21/16 02/22/16 05:59 05:59 05:59 Intake Total 3124 2555 Output Total 300 1100 Balance 2824 1455 PT 21.6 SEC (12.0-15.0) H 02/19/16 18:20 INR 1.87 (0.83-1.16) H 02/19/16 18:20 Physical Exam - Physical Exam General Appearance: mild distress Respiratory: rhonchi Cardiac/Chest: tachycardia Abdomen: normal bowel sounds, non-tender Skin: other (fungating mass left breast) ICD10 Worksheet Patient Problems: Problems Problem Status Diagnosed Pneumonia Acute Pulmonary embolus Acute
--- NOTE | 2016-02-21 12:57 | DX ---
AP chest x-ray 1238 hours. History: Follow PICC line placement. Findings: PICC line is seen from right arm approach with tip in the SVC near the sinocaval junction. Central vascular port and catheter are in stable position with tip in the right atrium. Heart size re august moderately enlarged. Pulmonary vasculature is prominent centrally. Moderate bilateral pleural e ffusions are suspected with adjacent atelectasis. Rule out superimposed consolidation/pneumonia. No n ew areas of consolidation are seen or evidence of pneumothorax. Osseous structures are unchanged. Mas s is once again noted over the left chest wall. Impression: 1. PICC line tip in good position. 2. Moderate bilateral pleural effusions with adjacent compressive atelectatic change. Rule out superi mposed consolidation/pneumonia. 3. Large mass over the left lower chest wall. 4. Moderate cardiomegaly.
--- NOTE | 2016-02-21 13:45 | WOCRNPDOC ---
WOCRN Advanced Assessment Note - Skin Integrity Problem, Advanced Assess Left Anterior Chest Dressing Type: ABD Pad, Xeroform Dressing Description: Saturated (along distal aspect) Exudate Amount: Excessive Exudate Color: Clear, Yellow, Reddish/Yellow Exudate Characteristic(s): Cloudy, Serosanguinous, Serous Integumentary Issue Intervention: Dressing Applied Lorraine Wound Tissue: Erythema (mild) Lorraine Wound Swelling: Mild Wound Bed Color: Red, Yellow Wound Bed Constitution: Smooth Tissue (20%), Adhered Slough (80%) Site Odor: Strong, Foul Site Measurement - Head-to-Toe Length X Width X Depth (cm): [id number] ( this tumor sits 5.5cm above the chest wall) Skin Integrity Problem Comment: This is a large, fungating tumor where patient' s L breast used to be. Presently it is covered in adhered slough, w/ scattered smooth tissue throughout. This tumor is highly exudative and malodorous. According to traffic signal supervisor maintenanceAYSHA Lynn, nurses are having to changed ABD pads 2-3 times per shift. Mild erythema and swelling lorraine-tumor along the chest wall. Patient presently denies any pain, and says she cannot really smell it. Site was thoroughly cleansed w/ Vashe anti-microbial cleanser, and a Silver alginate contact layer was applied over entire surface of tumor to manage moisture/odor, tucked into the skin between the tumor and upper abdomen along distal aspect where wound is most exudative. Covered w/ 3 abd pads and secured w/ Medipore. traffic signal supervisor maintenanceAYSHA Lynn present and assisting. Advised that the Melgisorb layer be left in place, w/ nursing changing the outer dressings only.
[2016-02-21] MEDS: VANCOMYCIN HCL/NORMAL SALINE 250 ML IV SCH (14:09)
--- NOTE | 2016-02-21 14:45 | IR ---
Ultrasound-Guided Peripherally Inserted Central Catheter History: Stage IV breast cancer, pulmonary embolism, sepsis, pneumonia. Technique: Procedure was performed with the patient in the hospital bed. Following informed consent, the right arm was prepped and draped in sterile fashion. 1% Xylocaine was used for local anesthetic. All elements of maximal sterile barrier technique including cap, mask, sterile gown, sterile gloves , large sterile sheet, hand hygiene, and 2% chlorhexidine for cutaneous antisepsis followed. Ultrasou nd transducer was placed in sterile sleeve and used for real-time imaging guidance to enter the basil ic vein. Sterile coupling gel was used. 0.018 measuring wire was passed centrally , and the internal jugular vein was assessed sonographically to exclude retrograde malposition . A skin mitchell with scal pel blade was followed by removing the access needle. A 5.5-Guatemalan peel-away sheath was followed by a 5-Guatemalan double lumen central catheter trimmed to 36 cm length. The length of catheter was estimated from external measurements. The hub of the catheter was fixed to the skin using a sterile StatLock a dhesive device and a sterile dressing was applied. The catheter irrigated easily. A portable chest radiograph was requested and will be reported separately. Findings: No sonographic evidence of malposition in the internal jugular vein. Impression: Ultrasound-guided 5-Guatemalan double lumen peripherally inserted central catheter; radiogra [facility] confirmation is pending. - - - - - - - - - - - - - - - - - - - - - - - - - - - - - - - - - - - - - - - - - - - (Crosscutting Measures: Current medications including all known prescriptions, [id number]-[id number] medi cations, herbal medications, and nutritional supplements are listed in the medical record. The patie nt does not smoke.) IR Call
--- NOTE | 2016-02-21 15:09 | HOSPPROG ---
Hospitalist Progress Note Assessment/Plan: Septic shock secondary to b/l PNA with suspected malignant effusions vs skin source. Port looks clear - Febrile to 38.5 yesterday afternoon. BCx's pending. Wound Cx sent. Cont Vanc/Zosyn, weaning Levophed. ID following. Left fungating breast cancer - stage IV by prior biopsy. Obtaining path, imaging, onc, surg reports from [facility]. -Oncology consult -pt agreeable to palliative care consult, ordered Anemia - hgb trending down to 7.4. Given sepsis and ongoing tachycardia, will give 1 u prbc's Tachycardia - Query sepsis response. No PE on CTA. She has received volume resuscitation and prn Albumin. prbc's planned as above. Acute encephalopathy - likely secondary to sepsis presentation, now resolved. Severe protein calorie malnutrition - dietary consult. Code - DNR Dispo - cont ICU, pallliative care consult planned Subjective: Pt feels a bit better today. Not as SOB. No CP. Still a deep, wet cough. Pain controlled. +fever yesterday afternoon to 38.5. Objective: Vital Signs Temp Pulse Resp BP Pulse Ox 36.9 C 122 H 25 H 90/55 L 100 02/21/16 12:00 02/21/16 14:00 02/21/16 14:00 02/21/16 14:00 02/21/16 14:00 Laboratory Results 02/21/16 04:40 02/21/16 04:40 02/20/16 02/21/16 02/22/16 05:59 05:59 05:59 Intake Total 3124 2555 Output Total 300 1100 Balance 2824 1455 PT 21.6 SEC (12.0-15.0) H 02/19/16 18:20 INR 1.87 (0.83-1.16) H 02/19/16 18:20 - Physical Exam Constitutional: no apparent distress Eyes: PERRL Ears, Nose, Mouth, Throat: moist mucous membranes Cardiovascular: tachycardia Respiratory: inspiratory crackles Gastrointestinal: normoactive bowel sounds, soft, non-tender abdomen Skin: other (pale) Neurologic: AAOx3 Psychiatric: interacting appropriately ICD10 Worksheet Patient Problems: Problems Problem Status Diagnosed Pneumonia Acute Pulmonary embolus Acute
[2016-02-22] MEDS: VANCOMYCIN HCL/NORMAL SALINE 250 ML IV SCH ×2 (00:50→14:20)
[2016-02-22] MEDS: LORazepam 0.5 MG TAB PO PRN (02:38)
[2016-02-22] MEDS: NOREPINEPHRINE BITARTRATE 4 MG in D5W 500 ML IV SCH ×2 (02:48→10:00)
[2016-02-22 04:18] LABS: % IMMATURE GRANULYOCYTES 0.3 % (0.0-1.1); ABSOLUTE IMMATURE GRANULOCYTES 0.02 10^3/uL (0.00-0.10); ABSOLUTE NRBC COUNT 0.04 10^3/uL (0-0.01); ADD DIFF? NO; ADD MORPH? YES; ADD SCAN? NO; ATYPICAL LYMPHOCYTE FLAG 30 (0-99); FRAGMENT RBC FLAG 40 (0-99); HEMOGLOBIN 9.6 g/dL (12.6-16.3); LEFT SHIFT FLG 10 (0-99); LIPEMIA HEMOLYSIS FLAG 80 (0-99); MEAN CELL HEMOGLOBIN 26.6 pg (27.9-34.1); MEAN CELL VOLUME 88.6 fL (81.5-99.8); MEAN PLATELET VOLUME 8.5 fL (8.7-11.7); NRBC-AUTO% 0.5 % (0.0-0.2); PLATELET CLUMPS FLAG 10 (0-99); PLATELET COUNT 496 10^3/uL (150-400); RED BLOOD CELL COUNT 3.61 10^6/uL (4.18-5.33)
[2016-02-22 04:27] LABS: RED CELL DISTRIBUTION WIDTH 26.4 % (11.5-15.2)
[2016-02-22 04:43] LABS: ANION GAP 8 mEq/L (8-16); CALCIUM 8.3 mg/dL (8.5-10.4); CARBON DIOXIDE 21 mEq/l (22-31); CHLORIDE 103 mEq/L (97-110); CREATININE 0.5 mg/dL (0.6-1.0); GLOMERULAR FILTRATION RATE > 60; GLUCOSE 144 mg/dL (70-100); SODIUM 132 mEq/L (134-144)
[2016-02-22] MEDS: PIPERACILLIN/TAZO 4.5 GM/DEX 100 ML IV SCH ×4 (05:01→23:15)
[2016-02-22 05:07] LABS: MACROCYTES 1+; MICROCYTES 2+
[2016-02-22 05:08] LABS: ELLIPTOCYTES 1+; HYPOCHROMIA 1+; LARGE PLATELETS PRESENT; PLATELET ESTIMATE INCREASED (ADEQ); POLYCHROMASIA 1+
[2016-02-22] MEDS: morphINE 10 MG/0.5 ML UDSYR PO PRN ×2 (10:00→15:28)
[2016-02-22] MEDS: APIXABAN 5 MG TAB PO SCH ×2 (10:00→20:22)
[2016-02-22] MEDS ORDERED: ALBUMIN 5% 500 ML IV ONE (10:33)
[2016-02-22] MEDS ORDERED: FUROSEMIDE 40 MG/4 ML VIAL IVP ONE (10:33)
--- NOTE | 2016-02-22 12:24 | HOSPPROG ---
Hospitalist Progress Note Assessment/Plan: Septic shock secondary to b/l PNA / HCAP with suspected malignant effusions vs skin source. Port looks clear - Afebrile past 24 hrs. BCx's NGTD. Wound Cx growing GNR's. Cont Vanc/Zosyn, weaning Levophed. ID following. Anasarca - trial albumin / lasix Left fungating breast cancer - stage IV by prior biopsy. Obtaining path, imaging, onc, surg reports from [facility]. -Oncology consulted, primary oncologist is Dr. Zavala at [facility] -palliative care consult. Pt wants to get stronger and start chemo. Anemia - s/p 1 u prbc's, hgb >9, no significant change in hemodynamics unfortunately Tachycardia - Query sepsis response. No PE on CTA. She has received volume resuscitation and prn Albumin. prbc's planned as above. Acute encephalopathy - likely secondary to sepsis presentation, now resolved. Severe protein calorie malnutrition - dietary consult. Code - DNR Dispo - cont ICU, pallliative care consult planned Subjective: Pt feels better, up in chair. Less SOB. No fevers. She feels benefit from oral roxanol. No CP. Appetite improving. Objective: Vital Signs Temp Pulse Resp BP Pulse Ox 36.6 C 113 H 23 H 107/74 93 02/22/16 09:00 02/22/16 11:00 02/22/16 11:00 02/22/16 11:00 02/22/16 11:00 Microbiology 02/21/16 11:00 Gram Stain - Final Breast - Eswab Laboratory Results 02/22/16 04:00 02/22/16 04:00 02/21/16 02/22/16 02/23/16 05:59 05:59 05:59 Intake Total 2555 2903 Output Total 1100 250 Balance 1455 2653 PT 21.6 SEC (12.0-15.0) H 02/19/16 18:20 INR 1.87 (0.83-1.16) H 02/19/16 18:20 - Physical Exam Constitutional: no apparent distress Eyes: PERRL Ears, Nose, Mouth, Throat: moist mucous membranes Cardiovascular: regular rate and rhythym Respiratory: no respiratory distress, inspiratory crackles Gastrointestinal: normoactive bowel sounds, soft, non-tender abdomen Skin: warm Neurologic: AAOx3 Psychiatric: interacting appropriately ICD10 Worksheet Patient Problems: Problems Problem Status Diagnosed Palliative care encounter Acute Pneumonia Acute Pulmonary embolus Acute
--- NOTE | 2016-02-22 14:14 | PDPCPN ---
Palliative Care Progress Note Assessment/Plan: Referring provider: Dr Baez Reason for consult: Complex medical decision making Symptom control HPI: Tara Piña is a 65 yo female with H stage IV breast cancer recently dx admitted to the hospital from [facility] for increased confusion, cough, SOB and fever. Found to be septic from PNA source. Recent admission at OSH 2 weeks ago and was found to have stage IV breast cancer. Met with oncology for plans for palliative chemo in the future when her performance status allows. Discharged to [facility] for ongoing rehab. Palliative care consulted for complex medical decision making. Met with Tara this morning. She states Elizabeth is her MDPOA as she has worked in healthcare and understands a lot of the details she needs help with (medicare, etc). She does not feel she needs a full conversation with her present as they met with the palliative care team at the OSH and spoke in great length. She understands her cancer is not curable and the hope of treatment is for a period of stability and life prolongation. She is hopefuly she can recover in order to improve in strength to reach the phase of starting treatment. We spoke about different options including hospice care if she can never regain strength or if she chooses comfort only. She feels right now that would be "giving up" and currently she feels she can improve. She is open to having palliative care continue to follow her for support. Assessment: Physical: - Dyspnea: significant at times with cough - roxanol 5mg Q3hr PRN- she feels as long as this is consistent her symptoms are controlled - if continues to need frequent roxanol might consider MSContin for longer lasting symptom relief. - Poor appetite: - slowly improving but does not like the food here - encourage general appetite - can use oral balance or other artificial saliva to help with xerostomia - constipation - at risk with opiates. Continue bowel regimen Emotional/psychological: doing ok with support from friends. Advanced Care Planning: Is patient decisional?: Yes Code Status: DNR POA: Friend Elizabeth is MDPOA. Plan: Wants to continue with rehab in hopes of starting chemo treatment for her cancer. Subjective: I'm feeling ok Objective: Social History: Has a local friend involved. Lives alone. 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 Medication list reviewed ROS: General: fatigue, weakness ENT: dry mouth Resp: dyspnea, cough GI: poor appetite : negative MS: negative Skin: left breast mass Neuro: negative Psych: negative Functional assessment: PPS: 40% Functional status: Needs assistance with some ADLs. Vital Signs Temp Pulse Resp BP Pulse Ox 36.6 C 112 H 22 H 93/70 L 93 02/22/16 09:00 02/22/16 13:00 02/22/16 13:00 02/22/16 13:00 02/22/16 13:00 Microbiology 02/21/16 11:00 Gram Stain - Final Breast - Eswab Laboratory Results 02/22/16 04:00 02/22/16 04:00 02/21/16 02/22/16 02/23/16 05:59 05:59 05:59 Intake Total 2555 2903 360 Output Total 1100 250 300 Balance 1455 2653 60 PT 21.6 SEC (12.0-15.0) H 02/19/16 18:20 INR 1.87 (0.83-1.16) H 02/19/16 18:20 Physical Exam - Physical Exam General Appearance: alert, no apparent distress Respiratory: decreased breath sounds, No respiratory distress, No accessory muscle use Skin: warm/dry, pallor Extremities: pedal edema Neuro/Psych: alert, oriented x 3 ICD10 Worksheet Patient Problems: Problems Problem Status Diagnosed Palliative care encounter Acute Pneumonia Acute Pulmonary embolus Acute - ICD10 Problem Qualifiers (1) Palliative care encounter
--- NOTE | 2016-02-22 15:11 | PDINTPN ---
[employer] Progress Note Assessment/Plan: Assessment: * Stage IV breast cancer with large fungating left breast mass * Sepsis-improving. Source may be pneumonia, may be breast lesions? * Pneumonia: Possible by CT scan-on vanco/Zosyn. Id following. * PE-on Eliquis * Resp-stable, on minimal O2. Effusions and atelectasis present, possible pneumonia question * VTE proph-on Eliquis * Nutrition-appetite remains poor, not eating much * Pain/dyspnea-adequately controlled with Roxanol * DNR - per patient wishes Plan: Continue present care in the intensive care unit. Continue antibiotics. Roxanol as needed. Dietary to see regarding food preferences. She will need to get considerably stronger prior to initiation of chemotherapeutic plans. 30 minutes of critical care time spent directly with the patient. Discussed with nursing, hospitalist, and the ICU multi disciplinary team. Subjective: Quite weak with some shortness of breath. Denies significant pain. Objective: Vital Signs Temp Pulse Resp BP Pulse Ox 36.6 C 112 H 28 H 103/76 95 02/22/16 09:00 02/22/16 14:00 02/22/16 14:00 02/22/16 14:00 02/22/16 14:00 Microbiology 02/21/16 11:00 Gram Stain - Final Breast - Eswab Laboratory Results 02/22/16 04:00 02/22/16 04:00 02/21/16 02/22/16 02/23/16 05:59 05:59 05:59 Intake Total 2555 2903 360 Output Total 1100 250 800 Balance 1455 2653 -440 PT 21.6 SEC (12.0-15.0) H 02/19/16 18:20 INR 1.87 (0.83-1.16) H 02/19/16 18:20 ICD10 Worksheet Patient Problems: Problems Problem Status Diagnosed Palliative care encounter Acute Pneumonia Acute Pulmonary embolus Acute
--- NOTE | 2016-02-22 16:22 | SOAPPROG ---
SOAP Progress Note Assessment/Plan: Assessment:1.) Large Left breast Cancer, with ulceration, reportedly ER-, [place]-, untreated. Has seen Dr. Tineo at [facility] in late January, but has not yet started any course of Tx. 2.) Pneumonia 3.) Septic shock, recovering 4.) Bilateral pleural effusions 5.) PE, on Eliquis 6.) Anemia, Reactive Thrombocytosis- multifactorial 7.) Large Left breast/chest wall ulceration management Plan: 1.) Tara's non-malignant problems take precedent in need of Tx and stabilization before considering palliative tx of her breast cancer. She indicates her desire to continue with Medical Oncology Tx. and management with Dr. Tineo's group at [facility]/ [facility]. There are several agents that could be minimally myelosuppressive that would offer adequate palliative Tx approach- after discharge e.g.: weekly low dose Paclitaxel, capecitabine, or oral cylophosphamide. No acute need for additional metastatic work up. Our service will follow intermittently. 02/22/16 16:22 Subjective: Feels okay sitting upright in bedside chair this afternoon. Objective: Pt in NAD, VSS as noted here. Running ST low 110's HEENT- anicteric, no oral lesions, no facial assymetry Neck- supple Chest - clear anteriorly CVS- ST, RR, Large left breast ulcerating wound with gauze over wound. No overwhelming odor from the ulceration at the bedside Abd- BS +, soft NT EXT- symmetric 2 + edema, skin intact over LE Labs as noted here: Hgb 9.6, PLT 496K,WBC 7.97 Vital Signs Temp Pulse Resp BP Pulse Ox 36.6 C 112 H 24 H 91/67 L 97 02/22/16 09:00 02/22/16 15:00 02/22/16 15:00 02/22/16 15:00 02/22/16 15:00 Microbiology 02/21/16 11:00 Gram Stain - Final Breast - Eswab Laboratory Results 02/22/16 04:00 02/22/16 04:00 02/21/16 02/22/16 02/23/16 05:59 05:59 05:59 Intake Total 2555 2903 610 Output Total 1100 250 800 Balance 1455 2653 -190 PT 21.6 SEC (12.0-15.0) H 02/19/16 18:20 INR 1.87 (0.83-1.16) H 02/19/16 18:20 ICD10 Worksheet Patient Problems: Problems Problem Status Diagnosed Palliative care encounter Acute Pneumonia Acute Pulmonary embolus Acute
--- NOTE | 2016-02-22 18:40 | PCMIDPN ---
Assessment/Plan: Assessment/Plan: * Sepsis: Likely due to healthcare associated pneumonia versus element associated skin and soft tissue infection with fungating breast mass. Non lactose fermenting gram-negative saima growing on breast culture. Difficult to determine if true pathogen versus colonization of denuded skin. Clinically improved with empiric vancomycin and Zosyn. Will continue both. Reassess vancomycin trough after adjustment of vancomycin dosing yesterday. 02/22/16 18:37 Subjective: Patient complains of less cough and dyspnea. Still dyspneic with limited movement. Objective: Vital Signs Temp Pulse Resp BP Pulse Ox 37 C 112 H 18 96/63 L 99 02/22/16 17:00 02/22/16 17:32 02/22/16 17:32 02/22/16 17:32 02/22/16 17:32 Microbiology 02/21/16 11:00 Gram Stain - Final Breast - Eswab Laboratory Results 02/22/16 04:00 02/22/16 04:00 02/21/16 02/22/16 02/23/16 05:59 05:59 05:59 Intake Total 2555 2903 2428 Output Total 8169 404 2104 Balance 1455 1153 428 Vancomycin #3 Zosyn #3 Blood cultures no growth - Physical Exam General Appearance: alert, no apparent distress EENT: pharynx normal, No scleral icterus Respiratory: crackles (bilateral lung mazariegos), No respiratory distress Cardiac/Chest: regular rate, rhythm Abdomen: non-tender, No distended Skin: other (fungating breast mass over entirety of left breast with numerous areas of denuded skin; no foul odor) ICD10 Worksheet Patient Problems: Problems Problem Status Diagnosed Palliative care encounter Acute Pneumonia Acute Pulmonary embolus Acute
[2016-02-23] MEDS: morphINE 10 MG/0.5 ML UDSYR PO PRN ×3 (01:51→20:07)
[2016-02-23] MEDS: VANCOMYCIN HCL/NORMAL SALINE 250 ML IV SCH ×2 (01:52→14:01)
[2016-02-23] MEDS: PIPERACILLIN/TAZO 4.5 GM/DEX 100 ML IV SCH ×3 (04:59→17:56)
[2016-02-23 05:10] LABS: HEMATOCRIT 32.4 % (38.0-47.0); HEMOGLOBIN 9.9 g/dL (12.6-16.3)
[2016-02-23] MEDS: NOREPINEPHRINE BITARTRATE 4 MG in D5W 500 ML IV SCH (05:10)
[2016-02-23 05:28] LABS: ANION GAP 7 mEq/L (8-16); CALCIUM 8.4 mg/dL (8.5-10.4); CARBON DIOXIDE 24 mEq/l (22-31); CHLORIDE 103 mEq/L (97-110); CREATININE 0.5 mg/dL (0.6-1.0); GLOMERULAR FILTRATION RATE > 60; GLUCOSE 107 mg/dL (70-100); MAGNESIUM 1.8 mg/dL (1.6-2.3); POTASSIUM 3.4 mEq/L (3.5-5.2); SODIUM 134 mEq/L (134-144)
[2016-02-23] MEDS: APIXABAN 5 MG TAB PO SCH ×2 (08:11→20:07)
--- NOTE | 2016-02-23 09:04 | DX ---
Portable AP Upright Chest February 23, 2016 6:08 a.m. Clinical History: 65-year-old female in the ICU with a history of stage IV breast cancer, presenting for follow up of respiratory status. Comparison Studies: Chest, dated February 21, [address] angiography of the chest, dated February 18. Findings: The fungating left breast cancer appears as a dense mass over the lower left chest wall and upper abdomen. There is a right subclavian central venous catheter Mediport which terminates at the SVC-right atrial junction, and a right-sided PICC which terminates in the proximal right atrium. Oxyg en tubing and telemetry monitoring lead lines are present. The cardiac silhouette remains enlarged. T here are bibasilar areas of pleuroparenchymal consolidation. The pulmonary vasculature is redistribut ed with some mild interstitial edema and diffuse peribronchial thickening. The trachea is shifted to the right. The patient has known mediastinal adenopathy. Impression: Persistent cardiomegaly and bibasilar pleuroparenchymal consolidation with persistent pul monary vascular congestion and some new interstitial edema in the medial left upper lung zone.
[2016-02-23] MEDS ORDERED: ALBUMIN 5% 500 ML IV ONE (09:13)
[2016-02-23] MEDS ORDERED: FUROSEMIDE 40 MG/4 ML VIAL IVP ONE (09:13)
--- NOTE | 2016-02-23 09:18 | PCMIDPN ---
Assessment/Plan: Assessment/Plan: 1. Sepsis likely 2/2 to #1, #2 2. Bilateral pulm infiltrates: Possible HCAP vs pulm edema -Currently on broad spectrum antibiotics with Vanco, zosyn. -Still requiring levophed. Still tachycardic. -Plan for short course only as long as is stable. 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 3. Stage IV left breast cancer with fungating mass: -Wound swab with GS: 3+ gpc, but Cultures showing Proteus vulgaris. Colonization vs contributing to initial sepsis presenation. - Await blood cx--ngtd -Continue vanco, zosyn. Vanco trough later today -Await wound care evaluation and assistance -care coordinated with Rn. Meds Vanco 750mg q12-02/20/16---changed to 1gm q12 (02/21/16)---D#4 zosyn 4.5gm q6-02/20/16----D#4 Subjective: Afebrile. Remains in ICU. SItting up in chair. Levophed restarted last night. Some weaning of dose this AM. Breathing easy. No tachypnea with speaking. Coughing but unable to bring up phlegm. Denies abd pain. Had formed stools yesterday. Denies pain involving left breast. Still with swelling in Lower extremities. Objective: Vital Signs Temp Pulse Resp BP Pulse Ox 36.7 C 104 H 26 H 105/66 96 02/23/16 08:00 02/23/16 08:00 02/23/16 08:00 02/23/16 08:00 02/23/16 08:00 Microbiology 02/21/16 11:00 Gram Stain - Final Breast - Eswab Laboratory Results 02/23/16 04:54 02/23/16 04:54 02/22/16 02/23/16 02/24/16 05:59 05:59 05:59 Intake Total 2903 3446 Output Total 250 3000 Balance 2653 446 - Physical Exam General Appearance: alert, no apparent distress Respiratory: coarse breath sounds (bilaterally) Cardiac/Chest: tachycardia Extremities: swelling (bilaterally) Abdomen: normal bowel sounds, non-tender, soft, No distended Skin: other (left breast with large mass, extensive breakdown. less foul smelling today. No char mass cellulitis noted. nontender. ) ICD10 Worksheet Patient Problems: Problems Problem Status Diagnosed Palliative care encounter Acute Pneumonia Acute Pulmonary embolus Acute
--- NOTE | 2016-02-23 17:03 | PDINTPN ---
[employer] Progress Note Assessment/Plan: Assessment: * Stage IV breast cancer with large fungating left breast mass * Sepsis-improved. Source may be pneumonia, possibly breast lesion? * Hypotension: Secondary to the above issues. Is still on low-dose Levophed. * Pneumonia: Possible by CT scan-on vanco/Zosyn, day 4 of 7. Id following. * PE-on Eliquis * Resp-stable, on minimal O2. Effusions and atelectasis present, possible pneumonia? * VTE proph-on Eliquis * Nutrition-appetite appears to be improving * Pain/dyspnea-adequately controlled with Roxanol * DNR - per patient wishes Plan: Continue present care in the intensive care unit for now. Continue antibiotics. Roxanol as needed. Can transfer to a medical-surgical bed once off of Levophed. 25 minutes of critical care time spent directly with the patient. Discussed with nursing, hospitalist, and the ICU multi disciplinary team. Subjective: Doing better, feels a little bit better, stronger today. Eating more. Objective: Vital Signs Temp Pulse Resp BP Pulse Ox 36.8 C 117 H 17 98/73 L 99 02/23/16 16:00 02/23/16 16:00 02/23/16 16:00 02/23/16 16:00 02/23/16 16:00 Microbiology 02/21/16 11:00 Gram Stain - Final Breast - Eswab Wound Culture - Final Proteus Vulgaris/Penneri Laboratory Results 02/23/16 04:54 02/23/16 04:54 02/22/16 02/23/16 02/24/16 05:59 05:59 05:59 Intake Total 2903 3446 Output Total 250 3000 Balance 2653 446 PT 21.6 SEC (12.0-15.0) H 02/19/16 18:20 INR 1.87 (0.83-1.16) H 02/19/16 18:20 CXR: Persistent by basilar effusions with associated atelectasis/infiltrate. Large cardiac silhouette, left chest wall mass obvious Physical Exam - Physical Exam General Appearance: alert, no apparent distress, other (Up in chair) EENT: PERRL/EOMI Neck: normal inspection Respiratory: lungs clear (Anteriorly), decreased breath sounds (At bases, consolidated changes above), No rhonchi Cardiac/Chest: tachycardia (Sinus) Abdomen: non-tender, soft, No normal bowel sounds (Decreased, present) Pelvic Exam: other (No Jaramillo catheter. Input greater than output but output much better last 24 hours) Skin: warm/dry, pallor Extremities: pedal edema Neuro/Psych: no motor/sensory deficits, No cognition abnormalities ICD10 Worksheet Patient Problems: Problems Problem Status Diagnosed Palliative care encounter Acute Pneumonia Acute Pulmonary embolus Acute
[2016-02-23] MEDS ORDERED: PROTOCOL POTASSIUM 1 DOSE MISC PRN (17:20)
--- NOTE | 2016-02-23 17:25 | HOSPPROG ---
Hospitalist Progress Note Assessment/Plan: Septic shock secondary to b/l PNA / HCAP with suspected malignant effusions. Port looks clear - Afebrile. BCx's NGTD. Wound Cx growing Proteus, ? colonization vs infection. Cont Vanc/Zosyn, weaning Levophed. ID following. Anasarca - giving Albumin / Lasix Left fungating breast cancer - stage IV by prior biopsy. Obtaining path, imaging, onc, surg reports from [facility]. -primary oncologist is Dr. Zavala at [facility] -palliative care consult. Pt wants to get stronger and start chemo. Anemia - s/p 1 u prbc's, hgb >9, no significant change in hemodynamics Tachycardia - Query sepsis response. No PE on CTA. She has received volume resuscitation and prn Albumin. Acute encephalopathy - likely secondary to sepsis presentation, now resolved. Severe protein calorie malnutrition - dietary consult. Ensures. Code - DNR Dispo - cont ICU Subjective: Pt feels a bit better. Some DE OLIVEIRA, but less SOB at rest. No fevers. STill on low dose levophed. Objective: Vital Signs Temp Pulse Resp BP Pulse Ox 36.8 C 117 H 17 98/73 L 99 02/23/16 16:00 02/23/16 16:00 02/23/16 16:00 02/23/16 16:00 02/23/16 16:00 Microbiology 02/21/16 11:00 Gram Stain - Final Breast - Eswab Wound Culture - Final Proteus Vulgaris/Penneri Laboratory Results 02/23/16 04:54 02/23/16 04:54 02/22/16 02/23/16 02/24/16 05:59 05:59 05:59 Intake Total 2903 3446 Output Total 250 3000 Balance 2653 446 PT 21.6 SEC (12.0-15.0) H 02/19/16 18:20 INR 1.87 (0.83-1.16) H 02/19/16 18:20 - Physical Exam Constitutional: chronically ill appearing Eyes: PERRL Ears, Nose, Mouth, Throat: moist mucous membranes Cardiovascular: tachycardia Respiratory: no respiratory distress, reduced air movement Gastrointestinal: normoactive bowel sounds, soft, non-tender abdomen Skin: warm Neurologic: AAOx3 Psychiatric: interacting appropriately ICD10 Worksheet Patient Problems: Problems Problem Status Diagnosed Palliative care encounter Acute Pneumonia Acute Pulmonary embolus Acute
[2016-02-23] MEDS: ACETAMINOPHEN 325 MG TAB PO PRN (20:07)
[2016-02-23 20:27] LABS: POTASSIUM 3.2 mEq/L (3.5-5.2)
[2016-02-23] MEDS: POTASSIUM Cl (KCl) 50 ML IV SCH ×2 (21:32→21:33)
[2016-02-24] MEDS: PIPERACILLIN/TAZO 4.5 GM/DEX 100 ML IV SCH ×5 (00:29→23:48)
[2016-02-24 00:48] LABS: POTASSIUM 3.7 mEq/L (3.5-5.2)
[2016-02-24] MEDS ORDERED: POTASSIUM Cl (KCl) 50 ML IV ONE (01:33)
[2016-02-24] MEDS: VANCOMYCIN HCL/NORMAL SALINE 250 ML IV SCH ×2 (01:36→14:13)
[2016-02-24] MEDS: morphINE 10 MG/0.5 ML UDSYR PO PRN ×3 (03:11→22:06)
[2016-02-24 06:05] LABS: ANION GAP 8 mEq/L (8-16); CALCIUM 8.3 mg/dL (8.5-10.4); CARBON DIOXIDE 28 mEq/l (22-31); CHLORIDE 102 mEq/L (97-110); CREATININE 0.5 mg/dL (0.6-1.0); GLOMERULAR FILTRATION RATE > 60; GLUCOSE 99 mg/dL (70-100); SODIUM 138 mEq/L (134-144)
[2016-02-24] MEDS: APIXABAN 5 MG TAB PO SCH ×2 (09:12→21:11)
--- NOTE | 2016-02-24 09:23 | WOCRNPDOC ---
WOCRN Advanced Assessment Note - Skin Integrity Problem, Advanced Assess Left Anterior Chest Dressing Type: Abdominal Pads Other Dressing Type: Melgisorb Ag Dressing Description: Intact Exudate Amount: Moderate Exudate Color: Reddish/Yellow Exudate Characteristic(s): Serosanguinous Integumentary Issue Intervention: Dressing Changed Char Wound Tissue: Erythema (mild, immediately char-wound) Char Wound Swelling: Mild Wound Bed Color: Red, Yellow Wound Bed Constitution: Smooth Tissue, Adhered Slough Site Odor: Slight Skin Integrity Problem Comment: Tissue covering tumor is largely unchanged, still predominantly adhered slough w/ scattered patches of smooth tissue. Exudate amount and odor much improved today. Applied Vashe-soaked gauze for 5 minutes, then applied new layer of Melgisorb Ag followed by ABD. fuse coilerAYSHA Lynn present and assisting.
[2016-02-24] MEDS ORDERED: FUROSEMIDE 20 MG/2 ML VIAL IVP ONE (10:38)
[2016-02-24] MEDS ORDERED: ALBUMIN 5% 500 ML IV ONE (10:38)
--- NOTE | 2016-02-24 10:54 | HOSPPROG ---
Hospitalist Progress Note Assessment/Plan: Septic shock secondary to b/l PNA / HCAP with suspected malignant effusions. Just discharged from [facility] prior to admission here. Port looks clear - Afebrile. BCx's NGTD. Off Levophed. -Cont Vanc/Zosyn, day 5/7 -ID following. Anasarca - giving Albumin / Lasix, will continue today, lower dose lasix Left fungating breast cancer - stage IV, biopsy at [facility]. Wound Cx growing Proteus, ?colonization vs infection. -primary oncologist is Dr. Zavala at [facility] -palliative care consult appreciated. Pt wants to get stronger and start chemo. Anemia - s/p 1 u prbc's, hgb >9, no significant change in hemodynamics Tachycardia - Improving. Likely sepsis response. No PE on CTA. She has received volume resuscitation and prn Albumin. Acute encephalopathy - secondary to sepsis presentation, now resolved. Severe protein calorie malnutrition - dietary consult. Ensures. Code - DNR Dispo - stable to transfer to med/surg Subjective: PT feels a bit better, still reports only 50% back to baseline. No fevers. No CP or SOB at rest. Still dyspneic with activity, but she is walking more with PT. Objective: Vital Signs Temp Pulse Resp BP Pulse Ox 36.5 C 104 H 17 101/63 97 02/24/16 08:00 02/24/16 10:00 02/24/16 10:00 02/24/16 10:00 02/24/16 10:00 Microbiology 02/21/16 11:00 Gram Stain - Final Breast - Eswab Wound Culture - Final Proteus Vulgaris/Penneri Laboratory Results 02/23/16 04:54 02/24/16 05:40 02/23/16 02/24/16 02/25/16 05:59 05:59 05:59 Intake Total 3446 2448 Output Total 3000 3600 Balance 446 -1152 PT 21.6 SEC (12.0-15.0) H 02/19/16 18:20 INR 1.87 (0.83-1.16) H 02/19/16 18:20 - Physical Exam Constitutional: chronically ill appearing Eyes: PERRL Ears, Nose, Mouth, Throat: moist mucous membranes Cardiovascular: regular rate and rhythym Respiratory: no respiratory distress, reduced air movement Gastrointestinal: normoactive bowel sounds, soft, non-tender abdomen Skin: warm Neurologic: AAOx3 Psychiatric: interacting appropriately ICD10 Worksheet Patient Problems: Problems Problem Status Diagnosed Palliative care encounter Acute Pneumonia Acute Pulmonary embolus Acute
[2016-02-24 14:21] LABS: POTASSIUM 3.5 mEq/L (3.5-5.2)
--- NOTE | 2016-02-24 14:22 | SOAPPROG ---
SOAP Progress Note Assessment/Plan: Assessment:1.) Large Left breast Cancer, with ulceration, reportedly ER-, [place]-, untreated. Has seen Medical Oncology - Dr. Tineo at [facility] in late January , but has not yet started any course of Tx. 2.) Pneumonia 3.) Septic shock, recovering 4.) Bilateral pleural effusions 5.) PE, on Eliquis 6.) Anemia, Reactive Thrombocytosis- multifactorial 7.) Large Left breast/chest wall ulceration management Plan: 1.) Tara's non-malignant problems take precedent in need of Tx and stabilization before considering palliative tx of her breast cancer. She indicates her desire to continue with Medical Oncology Tx. and management with Dr. Tineo's group at [facility]. There are several agents that could be minimally myelosuppressive that would offer adequate palliative Tx approach- after discharge e.g.: weekly low dose Paclitaxel, capecitabine, or oral cylophosphamide. No acute need for additional metastatic work up. Our service will follow intermittently. Improvement in patient's status noted, with more time out of bed, and in her ambulation. No additional diagnostic needs as of today. 02/24/16 14:20 Subjective: Feeling stronger, spending more time in chair, and ambulating short distances in the duarte. No new sx. Objective: VSS, afebrile as noted here HEENT- anicteric, no oral lesions, skin is pale. Neck- supple, without LN enlargement Chest- Kyphosis (+), clear post. and anteriorly CVS- RSR, no extra HS, ABD- soft, NT, BS+ Left breast ulceration noted/bandaged. EXT- less LE edema, bilaterally. Skin intact. Labs as noted here: Hgb 9.9 Vital Signs Temp Pulse Resp BP Pulse Ox 36.5 C 104 H 21 H 101/72 100 02/24/16 12:00 02/24/16 12:00 02/24/16 12:00 02/24/16 12:00 02/24/16 12:00 Microbiology 02/21/16 11:00 Gram Stain - Final Breast - Eswab Wound Culture - Final Proteus Vulgaris/Penneri Laboratory Results 02/23/16 04:54 02/23/16 02/24/16 02/25/16 05:59 05:59 05:59 Intake Total 3446 2448 300 Output Total 3000 3600 1000 Balance 446 -3061 -700 PT 21.6 SEC (12.0-15.0) H 02/19/16 18:20 INR 1.87 (0.83-1.16) H 02/19/16 18:20 ICD10 Worksheet Patient Problems: Problems Problem Status Diagnosed Palliative care encounter Acute Pneumonia Acute Pulmonary embolus Acute
[2016-02-24] MEDS: POTASSIUM Cl (KCl) 50 ML IV SCH ×3 (15:22→17:16)
--- NOTE | 2016-02-24 16:24 | PCMIDPN ---
Assessment/Plan: Assessment/Plan: * Sepsis: Likely due to healthcare associated pneumonia although cannot rule out element associated skin and soft tissue infection with fungating breast mass. Proteus has grown from breast culture-unclear if this represents true pathogen versus more likely colonization of denuded skin. Clinical improvement with vancomycin and Zosyn. Plan 7 days of therapy (end date 02/26/2016). Will sign off. Please call with questions or for recurrent symptomatology. 02/24/16 16:20 Subjective: Patient feels less dyspneic although still has dyspnea with limited activity. Objective: Vital Signs Temp Pulse Resp BP Pulse Ox 36.6 C 90 22 H 96/63 L 98 02/24/16 16:00 02/24/16 16:00 02/24/16 16:00 02/24/16 16:00 02/24/16 16:00 Microbiology 02/21/16 11:00 Gram Stain - Final Breast - Eswab Wound Culture - Final Proteus Vulgaris/Penneri Laboratory Results 02/23/16 04:54 02/24/16 12:05 02/23/16 02/24/16 02/25/16 05:59 05:59 05:59 Intake Total 3446 2448 300 Output Total 3000 3600 1350 Balance 199 -2137 -5464 Vancomycin # 5/7 Zosyn # 5/7 Breast cultures with growth of Proteus Blood cultures no growth Laboratory Tests 02/23/16 13:55 Vancomycin Trough 18.0 - Physical Exam General Appearance: alert, no apparent distress EENT: pharynx normal, No scleral icterus Respiratory: crackles (Bibasilar), No respiratory distress Cardiac/Chest: tachycardia Abdomen: non-tender, No distended ICD10 Worksheet Patient Problems: Problems Problem Status Diagnosed Palliative care encounter Acute Pneumonia Acute Pulmonary embolus Acute
[2016-02-24] MEDS: LORazepam 0.5 MG TAB PO PRN (17:05)
--- NOTE | 2016-02-24 17:21 | PDINTPN ---
Relief Driller Progress Note Assessment/Plan: Assessment: * Stage IV breast cancer with large fungating left breast mass * Sepsis-improved. Source may be pneumonia, possibly breast lesion? * Hypotension: Secondary to the above issues. Off Levophed. * Pneumonia: Possible by CT scan-on vanco/Zosyn, day 4 of 7. Id following. * PE-on Eliquis * Resp-stable, on minimal O2. Effusions and atelectasis present, possible pneumonia? * VTE proph-on Eliquis * Nutrition-appetite appears to be improving * Pain/dyspnea-adequately controlled with Roxanol * DNR - per patient wishes Plan: Continue present care. Can transfer to medical-surgical status.. Continue antibiotics. Roxanol as needed. 20 minutes of critical care time spent directly with the patient. Discussed with nursing, hospitalist, and the ICU multi disciplinary team. Subjective: looser cough today, starting to bring up sputum but unable to get this all the way out. Remains weak. Anxious at times. Objective: Vital Signs Temp Pulse Resp BP Pulse Ox 36.6 C 90 22 H 96/63 L 98 02/24/16 16:00 02/24/16 16:00 02/24/16 16:00 02/24/16 16:00 02/24/16 16:00 Microbiology 02/21/16 11:00 Gram Stain - Final Breast - Eswab Wound Culture - Final Proteus Vulgaris/Penneri Laboratory Results 02/23/16 04:54 02/24/16 12:05 02/23/16 02/24/16 02/25/16 05:59 05:59 05:59 Intake Total 3446 2448 300 Output Total 3000 3600 1350 Balance 446 -1152 -1050 PT 21.6 SEC (12.0-15.0) H 02/19/16 18:20 INR 1.87 (0.83-1.16) H 02/19/16 18:20 Laboratory Tests 02/24/16 05:40 Sodium 138 Potassium 4.0 Chloride 102 Carbon Dioxide 28 BUN 6 L Creatinine 0.5 L Glucose 99 Calcium 8.3 L CXR: None today. Last yesterday. Physical Exam - Physical Exam General Appearance: alert, no apparent distress, other ( Up in chair) EENT: PERRL/EOMI, other ( nasal cannula 2 L: 98%) Neck: normal inspection ( no JVD) Respiratory: lungs clear ( anteriorly), decreased breath sounds ( with dullness at the bases, few rales above), rales, rhonchi ( with cough) Cardiac/Chest: tachycardia ( sinus, regular rhythm at times), other ( breast mass on left, dressed.) Abdomen: normal bowel sounds, non-tender, soft Skin: warm/dry, pallor Extremities: swelling ( 2 to 3+ edema / anasarca lower extremities) Neuro/Psych: no motor/sensory deficits, No cognition abnormalities ICD10 Worksheet Patient Problems: Problems Problem Status Diagnosed Palliative care encounter Acute Pneumonia Acute Pulmonary embolus Acute
[2016-02-24 18:39] LABS: POTASSIUM 4.3 mEq/L (3.5-5.2)
[2016-02-25 01:06] LABS: POTASSIUM 3.6 mEq/L (3.5-5.2)
[2016-02-25] MEDS: POTASSIUM Cl (KCl) 50 ML IV SCH ×3 (01:37→02:47)
[2016-02-25] MEDS: morphINE 10 MG/0.5 ML UDSYR PO PRN ×2 (03:16→21:10)
[2016-02-25] MEDS: PIPERACILLIN/TAZO 4.5 GM/DEX 100 ML IV SCH ×3 (05:49→21:06)
[2016-02-25 06:18] LABS: POTASSIUM 4.3 mEq/L (3.5-5.2)
[2016-02-25] MEDS: VANCOMYCIN 750 MG in D5W 150 ML IV SCH ×2 (06:41→18:27)
[2016-02-25] MEDS: APIXABAN 5 MG TAB PO SCH ×2 (08:44→21:09)
[2016-02-25 13:13] LABS: POTASSIUM 4.2 mEq/L (3.5-5.2)
--- NOTE | 2016-02-25 13:36 | SOAPPROG ---
SOAP Progress Note Assessment/Plan: Assessment: * Stage IV breast cancer with large fungating left breast mass * Sepsis-improved. Source may be pneumonia, possibly breast lesion? * Hypotension: Secondary to the above issues. Off Levophed. * Pneumonia: Possible by CT scan-on vanco/Zosyn, day 5 of 7. * PE-on Eliquis * Resp-stable, on minimal O2. Effusions and atelectasis present, possible pneumonia? * VTE proph-on Eliquis * Nutrition-appetite appears to be improving * Pain/dyspnea-adequately controlled with Roxanol * DNR - per patient wishes Plan: Continue present care. Can transfer to medical-surgical status. Continue antibiotics x7 days. Roxanol as needed. discharge planning in process. Subjective: remains weak, denies pain. Denies significant shortness of breath. She feels the cough and mucus are better. Objective: Vital Signs Temp Pulse Resp BP Pulse Ox 36.3 C 110 H 17 90/63 L 97 02/25/16 08:00 02/25/16 08:00 02/25/16 08:00 02/25/16 08:00 02/25/16 08:00 Laboratory Results 02/23/16 04:54 02/25/16 12:45 02/24/16 02/25/16 02/26/16 05:59 05:59 05:59 Intake Total 2448 1616 Output Total 3600 1640 Balance -1152 -24 PT 21.6 SEC (12.0-15.0) H 02/19/16 18:20 INR 1.87 (0.83-1.16) H 02/19/16 18:20 Physical Exam - Physical Exam General Appearance: alert, no apparent distress, other ( Up in chair) EENT: other ( nasal cannula at 2 L) Neck: normal inspection (ension) Respiratory: lungs clear ( anteriorly), decreased breath sounds ( at the bases with dullness, a few rales above. Bronchial changes are present), rhonchi ( minimal today, with cough) Cardiac/Chest: tachycardia (s on monitor) Abdomen: normal bowel sounds, non-tender, soft Skin: warm/dry, pallor Extremities: swelling ( lower extremity edema persists but is clearly better) Neuro/Psych: no motor/sensory deficits, motor weakness ( generalized), No cognition abnormalities ICD10 Worksheet Patient Problems: Problems Problem Status Diagnosed Palliative care encounter Acute Pneumonia Acute Pulmonary embolus Acute
--- NOTE | 2016-02-25 17:29 | HOSPPROG ---
Hospitalist Progress Note Assessment/Plan: DIAGNOSIS: # acute septic shock # acute respiratory failure # suspected pneumonia # bilateral large pleural effusions, suspect malignant # Small pulmonary embolism, on anticoagulation # anemia of malignancy # severe protein calorie malnutrition # Metastatic breast cancer with large fungating mass PLANS: -transfer today to oncology unit -continue Eliquis -continue current antibiotics -Continue DNR per patient's wishes -Nutritional support -physical occupational therapies SUBJECTIVE: She has some pain but is well controlled on pain medicines Very weak, still with some dyspnea on oxygen Appetite fair OBJECTIVE Vitals reviewed: Stable without fever Exam: alert oriented skin warm dry color ok resps not labored lungs diffusely diminished breath sounds heart regular abd soft nondistended nontender, bowel sounds present limbs warm, no edema iv site ok Objective: Vital Signs Temp Pulse Resp BP Pulse Ox 36.5 C 113 H 16 101/65 89 L 02/25/16 16:00 02/25/16 16:00 02/25/16 16:00 02/25/16 16:00 02/25/16 16:00 Laboratory Results 02/23/16 04:54 02/25/16 12:45 02/24/16 02/25/16 02/26/16 06:59 06:59 06:59 Intake Total 2448 1616 Output Total 3600 1640 Balance -1152 -24 PT 21.6 SEC (12.0-15.0) H 02/19/16 18:20 INR 1.87 (0.83-1.16) H 02/19/16 18:20 ICD10 Worksheet Patient Problems: Problems Problem Status Diagnosed Palliative care encounter Acute Pneumonia Acute Pulmonary embolus Acute
--- NOTE | 2016-02-25 18:21 | PDPCPN ---
Palliative Care Progress Note Assessment/Plan: HPI: Tara Piña is a 65 yo female with H stage IV breast cancer recently dx admitted to the hospital from [facility] for increased confusion, cough, SOB and fever. Found to be septic from PNA source. Recent admission at OSH 2 weeks ago and was found to have stage IV breast cancer. Met with oncology for plans for palliative chemo in the future when her performance status allows. Discharged to [facility] for ongoing rehab. Palliative care consulted for complex medical decision making. Tara stated she feels she is improving. Her SOB is better and only occasionally needs roxanol. It usually helps without needing anything else but on occasion needs ativan for anxiety. She still has significant DE OLIVEIRA which she feels limits her mobility at times. Still feeling weak but working with therapies. Eating more and denies constipation. Assessment: Physical: - Dyspnea: significant at times with cough - roxanol 5mg Q3hr PRN - try before PT to help with dyspnea on exertion - Poor appetite: - slowly improving but does not like the food here - encourage general appetite - can use oral balance or other artificial saliva to help with xerostomia - constipation - at risk with opiates. Continue bowel regimen Emotional/psychological: doing ok with support from friends. Advanced Care Planning: Is patient decisional?: Yes Code Status: DNR POA: Friend Elizabeth is MDPOA. Plan: Wants to continue with rehab in hopes of starting chemo treatment for her cancer. Subjective: I'm improving Objective: Vital Signs Temp Pulse Resp BP Pulse Ox 36.5 C 113 H 16 101/65 89 L 02/25/16 16:00 02/25/16 16:00 02/25/16 16:00 02/25/16 16:00 02/25/16 16:00 Laboratory Results 02/23/16 04:54 02/25/16 12:45 02/24/16 02/25/16 02/26/16 05:59 05:59 05:59 Intake Total 2448 1616 Output Total 3600 1640 Balance -1152 -24 PT 21.6 SEC (12.0-15.0) H 02/19/16 18:20 INR 1.87 (0.83-1.16) H 02/19/16 18:20 Physical Exam - Physical Exam General Appearance: alert, no apparent distress Respiratory: No accessory muscle use, No decreased breath sounds Skin: normal color, warm/dry Extremities: pedal edema Neuro/Psych: alert, oriented x 3 ICD10 Worksheet Patient Problems: Problems Problem Status Diagnosed Palliative care encounter Acute Pneumonia Acute Pulmonary embolus Acute - ICD10 Problem Qualifiers (1) Palliative care encounter
[2016-02-25] MEDS: LORazepam 0.5 MG TAB PO PRN ×2 (21:09→22:35)
[2016-02-26] MEDS: morphINE 10 MG/0.5 ML UDSYR PO PRN ×4 (00:22→21:24)
[2016-02-26] MEDS: PIPERACILLIN/TAZO 4.5 GM/DEX 100 ML IV SCH ×3 (00:22→12:30)
[2016-02-26] MEDS: LORazepam 0.5 MG TAB PO PRN (05:40)
[2016-02-26] MEDS: VANCOMYCIN 750 MG in D5W 150 ML IV SCH ×2 (05:42→19:51)
[2016-02-26 05:54] LABS: % IMMATURE GRANULYOCYTES 0.6 % (0.0-1.1); ABSOLUTE IMMATURE GRANULOCYTES 0.07 10^3/uL (0.00-0.10); ADD DIFF? NO; ADD MORPH? YES; ADD SCAN? NO; ATYPICAL LYMPHOCYTE FLAG 90 (0-99); FRAGMENT RBC FLAG 60 (0-99); HEMATOCRIT 36.7 % (38.0-47.0); HEMOGLOBIN 10.7 g/dL (12.6-16.3); LEFT SHIFT FLG 0 (0-99); LIPEMIA HEMOLYSIS FLAG 70 (0-99); MEAN CELL HEMOGLOBIN 26.6 pg (27.9-34.1); MEAN CELL HEMOGLOBIN CONCENTR. 29.2 g/dL (32.4-36.7); MEAN CELL VOLUME 91.3 fL (81.5-99.8); MEAN PLATELET VOLUME 8.6 fL (8.7-11.7); PLATELET CLUMPS FLAG 0 (0-99); PLATELET COUNT 376 10^3/uL (150-400); RED BLOOD CELL COUNT 4.02 10^6/uL (4.18-5.33)
[2016-02-26 06:11] LABS: POTASSIUM 4.4 mEq/L (3.5-5.2); RED CELL DISTRIBUTION WIDTH 26.5 % (11.5-15.2)
--- NOTE | 2016-02-26 06:30 | SOAPPROG ---
SOAP Progress Note Assessment/Plan: Assessment:1.) Large Left breast Cancer, with ulceration, reportedly ER-, ID-, untreated. Has seen Medical Oncology - Dr. Tineo at [facility] in late January , but has not yet started any course of Tx. 2.) Pneumonia 3.) Septic shock, recovering 4.) Bilateral pleural effusions 5.) PE, on Eliquis 6.) Anemia, Reactive Thrombocytosis- multifactorial 7.) Large Left breast/chest wall ulceration management Plan: 1.) Tara's non-malignant problems take precedent in need of Tx and stabilization before considering palliative tx of her breast cancer. She indicates her desire to continue with Medical Oncology Tx. and management with Dr. Tineo's group at [facility]. There are several agents that could be minimally myelosuppressive that would offer adequate palliative Tx approach- after discharge e.g.: weekly low dose Paclitaxel, capecitabine, or oral cylophosphamide. No acute need for additional metastatic work up. Our service will follow intermittently. No additional diagnostic needs as of today. Consider therapeutic Thoracentesis if effusions compromising respiratory status. Pt has established DNR request. Prognosis given breast cancer and non-malignant complications remains poor. 02/26/16 06:30 Subjective: Early AM patient visit. Her course is noted and she is now on 1 [place]. She is resting comfortably, and is stable overnight Objective: VSS Afebrile, as noted here HEENT- no oral thrush Chest- mild upper respiratory rhonchi, adequate bilateral air movement CVS- RSR, no extra HS Large Left fungating breast mass in dressing. ABD- soft, NT, BS+ EXT- warm, well perfused. Lab data: Hgb 10.7, PLT 376 WBC 11.03 Vital Signs Temp Pulse Resp BP Pulse Ox 36.4 C 118 H 18 119/73 96 02/26/16 05:22 02/26/16 05:22 02/26/16 05:22 02/26/16 05:22 02/26/16 05:22 Laboratory Results 02/26/16 05:45 02/26/16 05:45 02/25/16 02/26/16 02/27/16 05:59 05:59 05:59 Intake Total 1616 1365 Output Total 1640 300 Balance -24 1065 PT 21.6 SEC (12.0-15.0) H 01/06/17 18:20 INR 1.87 (0.83-1.16) H 02/19/16 18:20 ICD10 Worksheet Patient Problems: Problems Problem Status Diagnosed Palliative care encounter Acute Pneumonia Acute Pulmonary embolus Acute
[2016-02-26 07:28] LABS: ELLIPTOCYTES 1+; HYPOCHROMIA 2+; STOMATOCYTES 1+
[2016-02-26 07:29] LABS: POLYCHROMASIA 1+
[2016-02-26 07:38] LABS: PLATELET ESTIMATE ADEQUATE (ADEQ)
[2016-02-26] MEDS: APIXABAN 5 MG TAB PO SCH ×2 (09:12→21:25)
[2016-02-26 16:48] LABS: ANION GAP 8 mEq/L (8-16); CALCIUM 9.3 mg/dL (8.5-10.4); CARBON DIOXIDE 29 mEq/l (22-31); CHLORIDE 99 mEq/L (97-110); CREATININE 0.4 mg/dL (0.6-1.0); GLOMERULAR FILTRATION RATE > 60; GLUCOSE 102 mg/dL (70-100); POTASSIUM 4.3 mEq/L (3.5-5.2); SODIUM 136 mEq/L (134-144)
[2016-02-26] MEDS ORDERED: FUROSEMIDE 20 MG/2 ML VIAL IVP ONE (17:01)
--- NOTE | 2016-02-26 17:06 | HOSPPROG ---
Hospitalist Progress Note Assessment/Plan: DIAGNOSIS: # acute septic shock - resolved # acute respiratory failure # suspected pneumonia # bilateral large pleural effusions, suspect malignant # Small pulmonary embolism, on anticoagulation # anemia of malignancy # severe protein calorie malnutrition # Metastatic breast cancer with large fungating mass At this time she remains fairly tachycardic, weak and debilitated, with some dyspnea. It may be this is due to malnutrition and anasarca; I do not think it is due to her PE which is small by volume; pulm HTN plays a role. With her renal function I think she will tolerate diuresis very well but is possible it will dry her out intravascularly or that she needs high R side filling pressures. Will really only be able to see by attempting diuresis. PLANS: -diuresis w IV lasix (will use head as she has had acute retention here) -follow BP's, pulse, renal fxn, alb levels closely; consider giving albumin -continue Eliquis -continue current antibiotics -Continue DNR per patient's wishes -Nutritional support -physical occupational therapies SUBJECTIVE: no change in sxs OBJECTIVE Vitals reviewed: Remains tachycardic, otherwise Stable without fever Exam: alert oriented skin warm dry color ok resps not labored lungs diffusely diminished breath sounds heart regular abd soft nondistended nontender, bowel sounds present limbs warm, no edema iv site ok Objective: Vital Signs Temp Pulse Resp BP Pulse Ox 36.7 C 116 H 16 100/68 92 02/26/16 16:00 02/26/16 16:00 02/26/16 16:00 02/26/16 16:00 02/26/16 16:00 Laboratory Results 02/26/16 05:45 02/26/16 15:20 02/25/16 02/26/16 02/27/16 06:59 06:59 06:59 Intake Total 1616 1365 Output Total 1640 300 300 Balance -24 1065 -300 PT 21.6 SEC (12.0-15.0) H 02/19/16 18:20 INR 1.87 (0.83-1.16) H 02/19/16 18:20 ICD10 Worksheet Patient Problems: Problems Problem Status Diagnosed Palliative care encounter Acute Pneumonia Acute Pulmonary embolus Acute
[2016-02-26 20:19] LABS: COLOR YELLOW; LEUKOCYTE ESTERASE,URINE NEGATIVE (NEGATIVE); NITRITE,URINE NEGATIVE (NEGATIVE)
[2016-02-27 04:56] LABS: ALBUMIN 2.3 g/dL (3.5-5.0); ANION GAP 6 mEq/L (8-16); CALCIUM 9.3 mg/dL (8.5-10.4); CARBON DIOXIDE 32 mEq/l (22-31); CHLORIDE 101 mEq/L (97-110); CREATININE 0.4 mg/dL (0.6-1.0); GLOMERULAR FILTRATION RATE > 60; GLUCOSE 98 mg/dL (70-100); POTASSIUM 4.2 mEq/L (3.5-5.2); SODIUM 139 mEq/L (134-144)
[2016-02-27] MEDS: morphINE 10 MG/0.5 ML UDSYR PO PRN ×2 (05:36→21:03)
--- NOTE | 2016-02-27 09:25 | SOAPPROG ---
SOAP Progress Note Assessment/Plan: Assessment: 1. Metastatic breast cancer. ER-/[place]- by report (at [facility]). I do not have her2 results 2. Pneumonia 3. Deconditioning due to cancer. Plan: - continue supportive care - abx, diuretics - pt plans to f/u with Dr. Simpson as outpatient to discuss chemo 02/27/16 09:24 Subjective: tired, but feeling somewhat better compared to yesterday Objective: exam: chronically ill appearing, a+ox3. lungs: diminished breath sounds bilaterally CV RRR no MGr Abd: +BS NT ND Ext: +2 edema legs, 1+ edema arms Vital Signs Temp Pulse Resp BP Pulse Ox 36.3 C 108 H 16 128/61 H 95 02/27/16 07:38 02/27/16 07:38 02/27/16 07:38 02/27/16 07:38 02/27/16 07:38 Laboratory Results 02/26/16 05:45 02/27/16 04:33 02/26/16 02/27/16 02/28/16 05:59 05:59 05:59 Intake Total 1365 750 Output Total 300 2500 Balance 1065 -1750 PT 21.6 SEC (12.0-15.0) H 02/19/16 18:20 INR 1.87 (0.83-1.16) H 02/19/16 18:20 ICD10 Worksheet Patient Problems: Problems Problem Status Diagnosed Palliative care encounter Acute Pneumonia Acute Pulmonary embolus Acute
[2016-02-27] MEDS: APIXABAN 5 MG TAB PO SCH ×2 (09:35→21:02)
--- NOTE | 2016-02-27 15:31 | HOSPPROG ---
Hospitalist Progress Note Assessment/Plan: 65-year-old female with known breast carcinoma admitted with septic shock. Patient is new to me today. -acute septic shock status post course of Zosyn and Zosyn. On 02/25/2015. Patient is currently afebrile. -acute respiratory failure secondary to weakness, anasarca, metastatic breast carcinoma, and possible pneumonia. The pneumonia is now off been status post a full course of antibiotics and we are now watching off antibiotics. -bilateral large pleural effusions, probably malignant -small pulmonary embolus on anticoagulation -anemia of malignancy -severe protein caloric malnutrition. Patient is a vegetarian and eating well off of her own diet. -metastatic breast carcinoma with a large left breast fungating mass. This is being followed by Oncology. She will be seeing Dr. Simpson as an outpatient -code status: DNR Plan: Diuresis with IV Lasix. We will use of Jaramillo as she has acute retention. Will follow her BP is renal function albumin level closely. Eliquis will be continued for anticoagulation. Zosyn has been stopped and will follow her WBC in white count off antibiotics. Disposition: Patient lives alone and will need either home assistance or discharge to an SNF. Subjective: Reports she is feeling well without chest pain or shortness of breath. She does have a cough but she is not productive. Denies fever or chills or abdominal pain Objective: Vital Signs Temp Pulse Resp BP Pulse Ox 36.3 C 108 H 16 128/61 H 95 02/27/16 07:38 02/27/16 07:38 02/27/16 07:38 02/27/16 07:38 02/27/16 07:38 Laboratory Results 02/26/16 05:45 02/27/16 04:33 02/26/16 02/27/16 02/28/16 05:59 05:59 05:59 Intake Total 1365 750 Output Total 300 2500 Balance 1065 -1750 PT 21.6 SEC (12.0-15.0) H 02/19/16 18:20 INR 1.87 (0.83-1.16) H 02/19/16 18:20 - Time Spent With Patient Time Spent with Patient: greater than 35 minutes Time Spent with Patient: Greater than 35 minutes spent on this patients care, greater than 50% of time spent counseling, educating, and coordinating care regarding the above mentioned plan. - Physical Exam Constitutional: chronically ill appearing, cachectic Eyes: PERRL, anicteric sclera Ears, Nose, Mouth, Throat: moist mucous membranes, hearing normal Cardiovascular: regular rate and rhythym, no murmur, rub, or gallop, systolic murmur Respiratory: no respiratory distress, reduced air movement, other (Chest wall shows a large left breast fungating mass. A intravascular port has been placed in the right chest. PICC line is in the right upper forearm.) Gastrointestinal: normoactive bowel sounds, soft, non-tender abdomen, no palpable masses Genitourinary: no bladder fullness Skin: warm Musculoskeletal: generalized weakness Neurologic: AAOx3, CN II-XII Intact ICD10 Worksheet Patient Problems: Problems Problem Status Diagnosed Palliative care encounter Acute Pneumonia Acute Pulmonary embolus Acute
[2016-02-27] MEDS ORDERED: FUROSEMIDE 20 MG/2 ML VIAL IVP ONE (15:38)
[2016-02-27] MEDS: LORazepam 0.5 MG TAB PO PRN (21:02)
[2016-02-28] MEDS: morphINE 10 MG/0.5 ML UDSYR PO PRN ×2 (02:55→13:54)
[2016-02-28] MEDS: LORazepam 0.5 MG TAB PO PRN ×3 (02:56→15:49)
[2016-02-28 07:41] LABS: % IMMATURE GRANULYOCYTES 0.3 % (0.0-1.1); ABSOLUTE IMMATURE GRANULOCYTES 0.03 10^3/uL (0.00-0.10); ADD DIFF? NO; ADD MORPH? YES; ADD SCAN? NO; ATYPICAL LYMPHOCYTE FLAG 40 (0-99); FRAGMENT RBC FLAG 60 (0-99); HEMATOCRIT 38.5 % (38.0-47.0); HEMOGLOBIN 11.5 g/dL (12.6-16.3); LEFT SHIFT FLG 0 (0-99); LIPEMIA HEMOLYSIS FLAG 70 (0-99); MEAN CELL HEMOGLOBIN 27.3 pg (27.9-34.1); MEAN CELL HEMOGLOBIN CONCENTR. 29.9 g/dL (32.4-36.7); MEAN CELL VOLUME 91.2 fL (81.5-99.8); MEAN PLATELET VOLUME 8.6 fL (8.7-11.7); PLATELET CLUMPS FLAG 0 (0-99); PLATELET COUNT 419 10^3/uL (150-400); RED BLOOD CELL COUNT 4.22 10^6/uL (4.18-5.33)
[2016-02-28 07:54] LABS: ANION GAP 7 mEq/L (8-16); CALCIUM 9.6 mg/dL (8.5-10.4); CARBON DIOXIDE 33 mEq/l (22-31); CHLORIDE 99 mEq/L (97-110); CREATININE 0.4 mg/dL (0.6-1.0); GLOMERULAR FILTRATION RATE > 60; GLUCOSE 90 mg/dL (70-100); SODIUM 139 mEq/L (134-144)
[2016-02-28 08:07] LABS: RED CELL DISTRIBUTION WIDTH 26.2 % (11.5-15.2)
[2016-02-28 08:32] LABS: ELLIPTOCYTES 1+; MACROCYTES 1+; MICROCYTES 1+; PLATELET ESTIMATE INCREASED (ADEQ); POLYCHROMASIA 1+; ROULEAUX PRESENT
[2016-02-28] MEDS: APIXABAN 5 MG TAB PO SCH ×2 (09:51→19:46)
[2016-02-28] MEDS ORDERED: FUROSEMIDE 20 MG/2 ML VIAL IVP ONE (14:29)
--- NOTE | 2016-02-28 14:32 | HOSPPROG ---
Hospitalist Progress Note Assessment/Plan: 65-year-old female with known breast carcinoma admitted with septic shock. Found following admission to have stage IV breast carcinoma. Patient has requested a DNR status and a limitation of treatment. Her desire years to regain her strength and possibly have chemotherapy to reduce the bulk of this large left breast mass and tumor. Today the patient is acutely tachypneic and tachycardic but afebrile. Clinically she continues to have decreased breath sounds in the bases consistent with her bilateral pleural effusions. -acute septic shock status post course of Zosyn and Zosyn. On 02/25/2015. Patient is currently afebrile. -diuresis: Patient responded well to Lasix 40 mg IV yesterday without a bump in creatinine or BUN. Will repeat this dose again today. -acute respiratory failure secondary to weakness, anasarca, metastatic breast carcinoma, and possible pneumonia. The pneumonia is now off been status post a full course of antibiotics and we are now watching off antibiotics. -bilateral large pleural effusions, probably malignant -small pulmonary embolus on anticoagulation -anemia of malignancy -severe protein caloric malnutrition. Patient is a vegetarian and eating well off of her own diet. -metastatic breast carcinoma with a large left breast fungating mass. This is being followed by Oncology. She will be seeing Dr. Simpson as an outpatient -code status: DNR Plan: Diuresis with IV Lasix. We will use of Jaramillo as she has acute retention. Will follow her BP is renal function albumin level closely. Eliquis will be continued for anticoagulation. Zosyn has been stopped and will follow her WBC in white count off antibiotics. Disposition: Patient will return to [facility] whenever a bed is available and fall the palliative care consultation treatment guidelines. The overall plan is to increase the patient's strength with nutrition and PT to the point where she can participate with chemotherapy or perhaps radiation therapy. Follow-up will be with Dr. Paulina lorenzana Subjective: Tachypneic and short of breath at the moment. She denies chest pain. Objective: Vital Signs Temp Pulse Resp BP Pulse Ox 36.6 C 164 H 22 H 107/82 H 97 02/28/16 14:06 02/28/16 14:01 02/28/16 14:01 02/28/16 14:06 02/28/16 14:01 Laboratory Results 02/28/16 07:30 02/28/16 07:30 02/27/16 02/28/16 02/29/16 05:59 05:59 05:59 Intake Total 750 700 Output Total 2500 1500 Balance -1750 -800 PT 21.6 SEC (12.0-15.0) H 02/19/16 18:20 INR 1.87 (0.83-1.16) H 02/19/16 18:20 - Time Spent With Patient Time Spent with Patient: greater than 35 minutes Time Spent with Patient: Greater than 35 minutes spent on this patients care, greater than 50% of time spent counseling, educating, and coordinating care regarding the above mentioned plan. - Physical Exam Constitutional: chronically ill appearing, other (Tachypneic and tachycardic) Eyes: PERRL, anicteric sclera Ears, Nose, Mouth, Throat: moist mucous membranes, hearing normal Cardiovascular: regular rate and rhythym, no murmur, rub, or gallop, tachycardia Respiratory: reduced air movement, bronchial breath sounds, dullness to percussion Gastrointestinal: normoactive bowel sounds, soft, non-tender abdomen Genitourinary: no bladder fullness Skin: warm Musculoskeletal: generalized weakness Neurologic: AAOx3, CN II-XII Intact Psychiatric: interacting appropriately ICD10 Worksheet Patient Problems: Problems Problem Status Diagnosed Palliative care encounter Acute Pneumonia Acute Pulmonary embolus Acute
[2016-02-29 05:03] LABS: % IMMATURE GRANULYOCYTES 0.5 % (0.0-1.1); ABSOLUTE IMMATURE GRANULOCYTES 0.05 10^3/uL (0.00-0.10); ADD DIFF? NO; ADD MORPH? YES; ADD SCAN? NO; ATYPICAL LYMPHOCYTE FLAG 20 (0-99); FRAGMENT RBC FLAG 60 (0-99); HEMOGLOBIN 11.3 g/dL (12.6-16.3); LEFT SHIFT FLG 0 (0-99); LIPEMIA HEMOLYSIS FLAG 70 (0-99); MEAN CELL HEMOGLOBIN 27.1 pg (27.9-34.1); MEAN CELL HEMOGLOBIN CONCENTR. 29.7 g/dL (32.4-36.7); MEAN CELL VOLUME 91.1 fL (81.5-99.8); MEAN PLATELET VOLUME 8.6 fL (8.7-11.7); PLATELET CLUMPS FLAG 0 (0-99); PLATELET COUNT 408 10^3/uL (150-400); RED BLOOD CELL COUNT 4.17 10^6/uL (4.18-5.33)
[2016-02-29 05:13] LABS: ANION GAP 5 mEq/L (8-16); CALCIUM 9.8 mg/dL (8.5-10.4); CARBON DIOXIDE 35 mEq/l (22-31); CHLORIDE 99 mEq/L (97-110); CREATININE 0.4 mg/dL (0.6-1.0); GLOMERULAR FILTRATION RATE > 60; GLUCOSE 81 mg/dL (70-100); POTASSIUM 3.8 mEq/L (3.5-5.2); SODIUM 139 mEq/L (134-144)
[2016-02-29 05:14] LABS: RED CELL DISTRIBUTION WIDTH 25.8 % (11.5-15.2)
[2016-02-29 05:59] LABS: HYPOCHROMIA 1+; POLYCHROMASIA 1+
[2016-02-29 06:01] LABS: MACROCYTES 2+; MICROCYTES 2+; PLATELET ESTIMATE INCREASED (ADEQ); SCHISTOCYTES 1+
[2016-02-29] MEDS: morphINE 10 MG/0.5 ML UDSYR PO PRN (08:50)
[2016-02-29] MEDS: APIXABAN 5 MG TAB PO SCH (08:51)
[2016-02-29] MEDS: LORazepam 0.5 MG TAB PO PRN (08:51)
--- NOTE | 2016-02-29 11:44 | SOAPPROG ---
SOAP Progress Note Assessment/Plan: Assessment: 1. Metastatic breast cancer. ER-/[place]- by report (at [facility]). I do not have her2 results. Dr. Zavala is her primary oncologist and she intends to follow up with him after discharge. 2. Pneumonia 3. Deconditioning due to cancer - she has had significant weight loss. It sounds as though her ECOG performance status is 4 depending on the day. Unless she substantially improves, she will be a poor candidate for chemo. She understands she will need another SNF stay. Plan: - continue supportive care - abx, diuretics - pt plans to f/u with Dr. Zavala as outpatient to discuss chemo. However, it seems that the goal of 'getting stronger' might be unrealistic. I would suggest a palliative care consultation to help her clarify her goals of therapy. Hospice /best supportive care would be an acceptable alternative also. Subjective: "I don't feel very good". She denies pain, but can't be more specific. Objective: Vital Signs Temp Pulse Resp BP Pulse Ox 36.9 C 116 H 22 H 106/67 97 02/29/16 08:55 02/29/16 08:55 02/29/16 08:55 02/29/16 08:55 02/29/16 09:06 Laboratory Results 02/29/16 04:55 02/29/16 04:55 02/27/16 02/28/16 02/29/16 23:59 23:59 23:59 Intake Total 750 800 250 Output Total 950 3100 350 Balance -200 -2300 -100 PT 21.6 SEC (12.0-15.0) H 02/19/16 18:20 INR 1.87 (0.83-1.16) H 02/19/16 18:20 Physical Exam - Physical Exam General Appearance: moderate distress Respiratory: crackles (bilat) Cardiac/Chest: edema (2+ bilateral) Skin: pallor Neuro/Psych: depressed affect ICD10 Worksheet Patient Problems: Problems Problem Status Diagnosed Palliative care encounter Acute Pneumonia Acute Pulmonary embolus Acute
--- NOTE | 2016-02-29 14:36 | PDIAF ---
- Diagnosis Code Status: Do Not Resuscitate - Medication Management Discharge Medications: Medications to Continue on Transfer Acetaminophen [Tylenol 325mg (*)] 650 mg PO Q4HRS PRN #0 tab 02/29/16 [Last Taken Unknown] Apixaban [Eliquis] 5 mg PO BID 30 Days 02/29/16 [Last Taken Unknown] Furosemide [Lasix 20 MG (*)] 20 mg PO DAILY 30 Days 02/29/16 [Last Taken Unknown ] LORazepam [Ativan (*)] 0.5 - 1 mg PO Q6 PRN 30 Days 02/29/16 [Last Taken Unknown ] Ondansetron Odt [Zofran Odt 4 mg (*)] 4 mg PO Q4HRS PRN #30 tab 02/29/16 [Last Taken Unknown] Potassium Cl [Klor-Con 10 meq (RX)] 20 meq PO DAILY 30 Days 02/29/16 [Last Taken Unknown] morphINE [Roxanol 10 mg/0.5 ml oral soln (*)] 5 mg PO Q3 PRN 30 Days 02/29/16 [ Last Taken Unknown] Discharge Medications: Refer to the Discharge Home Medication list for PRN reason. PICC Care - Routine: Yes - Orders Services needed: Registered Nurse, Certified [employer], Master Skein Inspector , Physical Therapy, Occupational Therapy Diet Recommendation: no restrictions on diet Diet Texture: Regular Texture Diet Weigh Patient: daily Jaramillo: No Wound Care Instructions: Included in discharge instructions - Labs/Radiology CBC Date: 03/07/16 CMP Date: 03/07/16 - Follow Up Care Current Providers and Referrals: NONE *PRIMARY CARE P,. [Primary Care Provider] - As per Instructions
--- NOTE | 2016-02-29 14:59 | GDS ---
[f rep st] DISCHARGE SUMMARY NEW AND ACUTE DIAGNOSES: 1. Acute septic shock. 2. Acute respiratory failure. 3. Probable pneumonia and bilateral compressive atelectasis and consolidation, secondary to pleural effusions. 4. Bilateral large pleural effusions, suspect malignancy. 5. Metastatic breast carcinoma with a large left breast fungating mass. 6. Anemia of malignancy. 7. Severe protein caloric malnutrition. 8. Small pulmonary embolus, on anticoagulation with Eliquis. 9. Do not resuscitate status. CONSULTATIONS: Infectious Disease, Critical Care Medicine. PROCEDURES: 1. Echocardiogram showing reduced left ventricular function with an ejection fraction of 30-35%, flattened interventricular septum with hypokinesis due to RV strain, probable diastolic dysfunction, and severe mitral regurgitation is noted. 2. PICC line insertion on 02/21/2016. HOSPITAL COURSE: This is a 65-year-old woman, who presented with a large left breast fungating mass and a diagnosis of stage IV breast carcinoma. She had recently been diagnosed at [facility] with a pulmonary embolus and on admission was on Eliquis. She presented with respiratory failure, confusion , and was diagnosed with acute respiratory failure, possible repeat pulmonary embolus, and sepsis. She was placed on IV antibiotics. Her anticoagulation was continued. Her respiratory status was stabilized. Large bilateral pleural effusions were noted, though they were not tapped. Review of the records from [facility] indicated that they had a diagnosis of stage IV breast carcinoma estrogen-receptive negative, but the Her status was unknown. It was felt that her breast cancer was incurable and she agreed to a DNR status. Her only desire was to regain strength and potentially have chemo or radiation therapy as palliative care. Palliative Care was consulted. She has a medical [id number] whose name is Elizabeth. From the Palliative Care consult, it was decided that the patient hoped that she could recover to improve her strength and reach a phase where she could start chemotherapy and/or radiation. She did not want to "give up" at this time. Thus, the decision was to give relief with Roxanol for her pain and breathlessness, but to continue PT, OT, and nutrition as best as possible. The final plan for this patient through Palliative Care was to treat dyspnea as needed with Roxanol, supply diet as necessary despite her poor appetite, treat the constipation resulting from her use of Roxanol. The patient was felt to still be decisional, although she does have an MPOA. Regarding her breast carcinoma, she is known to be estrogen-receptor negative and progesterone-receptor negative and therefore, not amenable to hormonal therapy. At this dictation, the Her2 results are unknown. Her primary oncologist is Dr. Zavala, and she desires to see him once she has attained more strength and conditioning to attempt radiation or chemotherapy. DISCHARGE MEDICATIONS: Potassium 20 mEq daily, Lasix 20 mg daily, morphine in the form of Roxanol 10 mg per 0.5 cc she is to receive 5 mg p.o. q.3 hours p.r.n. pain, Zofran 4 mg p.o. q.4 hours, Ativan 0.5-1 mg p.o. q.6 hours p.r.n. anxiety, Eliquis 5 mg b.i.d., Tylenol 650 mg q.4 hours p.r.n. PLAN: Patient is discharged to [facility]. Her diet is unrestricted and normal texture. She is to have physical therapy and daily wound care to the left breast mass. She will require oxygen as needed to supplement to an SaO2 greater than 90%. This lady's situation is unfortunate. She knew of the left breast mass for over a year before presenting to [facility]. She insists upon seeing Dr Simpson in followup. The options for her care are very limited as she does not want procedures and simply wants to get stronger so she can consider chemotherapy in the future. Should she present again in the near future I suggest that we insist upon tapping the chest effusion for relief and diagnosis. Her followup will be with her oncologist, Dr. Zavala. This is per the patient's decision. She had seen Dr. Zavala through [facility] and desires to have followup through him. She understands her severe degree of weakness. Should there be further questions, these can be addressed through Dr. Zavala's office. Palliative Care consultation at [facility] may also be appropriate. Note that the patient is DNR at this dictation. TIME: This discharge required 55 minutes, greater than 50% to pet adoption counselor and coordinate her care. /[id number]/MODL MTDD
[2016-02-29 15:34] VITALS: BP 95/63; PULSE 100; RESP 20; TEMP 97.4; O2SAT 92
== END 2016-02-29 16:25 | DRG 871 ==
LOC: F2N 23:01 → F1N 02-25 14:47
PROVIDERS: ADMIT Internal Medicine; ATTEND Internal Medicine
PROC: 30233N1 Transfusion of Nonautologous Red Blood Cells into Peripheral Vein, Percutaneous Approach (ICD-10-PCS; 2016-02-19)
PROC: 02HV33Z Insertion of Infusion Device into Superior Vena Cava, Percutaneous Approach (ICD-10-PCS; principal; 2016-02-21)
DX: A41.9 Sepsis, unspecified organism (principal); R65.21 Severe sepsis with septic shock; J18.9 Pneumonia, unspecified organism; I26.99 Other pulmonary embolism without acute cor pulmonale; C50.912 Malignant neoplasm of unspecified site of left female breast; E43 Unspecified severe protein-calorie malnutrition; D63.8 Anemia in other chronic diseases classified elsewhere; G93.40 Encephalopathy, unspecified; R33.9 Retention of urine, unspecified; Z66 Do not resuscitate
CPT/HCPCS: 96365; 96366; 97116-GP; 97162-GP; 97166-GO; 97530-GO; 97530-GP; 97535-GO; C1751; G8978-GP-CK; G8979-GP-CI; G8987-GO-CK; G8988-GO-CJ; J1650; J1956; J2405; J2543; J2997; J3370; P9016; P9040; P9041; P9047; Q9967